=== PATIENT | female | born 1975 | race Caucasian/White ===

== ENCOUNTER → 2018-06-10 | Outpatient (CLI) | payer MEDICARE ==
--- NOTE | 2018-06-10 18:19 | REP ---
Clinical: Right ankle pain . Technique: AP, lateral, bilateral oblique views right ankle . Findings: Moderate swelling is suggested. No acute fracture or dislocation. Skeletal structures and joint spaces are intact and normal. Ankle mortise appears stable. No subcutaneous emphysema or radiodense foreign body. Impression: Moderate swelling. No acute fracture or dislocation. Electronically Signed by Martínez Gunderson MD 06/10/2018 06:10 P
--- NOTE | 2018-06-10 18:52 | REP ---
Right foot series: Four views: History: Pain in the right ankle and foot. Findings: Overall mineralization pattern is normal. There is a small bone island in the distal phalanx of the great toe. There is Achilles and plantar calcaneal spurring. Mild spurring is seen at the MTP joint of the great toe. No fracture or other acute bony abnormality is seen. Soft tissue swelling is seen dorsally over the forefoot on the lateral radiograph. Impression: Heel spurs. Mild first MTP joint spurring. Diffuse dorsal forefoot soft tissue swelling. Electronically Signed by Paolo Clemente MD 06/10/2018 06:58 P
== END ==
LOC: M WUC 17:56
PROVIDERS: ATTEND Physician Assistant
DX: M25.571 Pain in right ankle and joints of right foot (principal)

== ENCOUNTER 2018-12-27 18:52 | Inpatient (IN) | payer MEDICARE, MEDICAID ==
[~2018-12-27] VITALS: Ht 157.5 cm; Wt 58.2 kg
[2018-12-27 19:53] LABS: HEMATOCRIT 38.2 % (36.0-47.0); HEMOGLOBIN 12.7 g/dl (12.0-15.5); MEAN CORPUSCULAR HEMOGLOBIN 32.7 pg (27.0-33.0); MEAN CORPUSCULAR HGB CONC 33.2 g/dl (32.0-36.5); MEAN CORPUSCULAR VOLUME 98.5 fl (80.0-96.0); PLATELET COUNT, AUTOMATED 279 10^3/uL (150-450); RED BLOOD COUNT 3.88 10^6/uL (4.00-5.40); WHITE BLOOD COUNT 8.8 10^3/uL (4.0-10.0)
[2018-12-27 20:12] LABS: AMPHETAMINES LEVEL URINE NEGATIVE (NEGATIVE); BARBITURATES URINE NEGATIVE (NEGATIVE); BENZODIAZEPINES URINE NEGATIVE (NEGATIVE); CANNABINOIDS URINE NEGATIVE (NEGATIVE); COCAINE METABOLITE URINE NEGATIVE (NEGATIVE); METHADONE URINE NEGATIVE (NEGATIVE); OPIATES URINE NEGATIVE (NEGATIVE); PHENCYCLIDINE URINE NEGATIVE (NEGATIVE)
[2018-12-27 20:21] LABS: HCG, SERUM QUALITATIVE NEGATIVE (NEGATIVE)
[2018-12-27 20:23] LABS: ACETAMINOPHEN LEVEL < 2.0 UG/ML (10.0-30.0); ALBUMIN 4.2 GM/DL (3.2-5.2); ALT/SGPT 17 U/L (12-78); BILIRUBIN,DIRECT 0.2 MG/DL (0.0-0.2); BILIRUBIN,TOTAL 0.4 MG/DL (0.2-1.0); BLOOD UREA NITROGEN 16 MG/DL (7-18); CALCIUM LEVEL 9.1 MG/DL (8.5-10.1); CARBON DIOXIDE LEVEL 27 MEQ/L (21-32); CHLORIDE LEVEL 109 MEQ/L (98-107); CREATININE FOR GFR 0.69 MG/DL (0.55-1.30); ETHYL ALCOHOL (ETHANOL) < 0.003 % (0.000-0.010); GLOMERULAR FILTRATION RATE > 60.0 (>58); GLUCOSE, FASTING 115 MG/DL (70-100); POTASSIUM SERUM 3.5 MEQ/L (3.5-5.1); SALICYLATE LEVEL 3.9 MG/DL (5.0-30.0); SODIUM LEVEL 142 MEQ/L (136-145); THYROID STIMULATING HORMONE 0.411 uIU/ML (0.358-3.740); TOTAL PROTEIN 7.2 GM/DL (6.4-8.2)
--- NOTE | 2018-12-27 21:11 | REPVR ---
EXAM: CT Head Without Contrast EXAM DATE/TIME: 12/27/2018 8:29 PM CLINICAL HISTORY: 43 years old, female; Altered mental status/memory loss; Confusion or disorientation TECHNIQUE: Imaging protocol: Computed tomography images of the head without contrast. Radiation optimization: All CT scans at this facility use at least one of these dose optimization techniques: automated exposure control; mA and/or kV adjustment per patient size (includes targeted exams where dose is matched to clinical indication); or iterative reconstruction. COMPARISON: MRI-Brain without Contrast 03/19/2013 3:56 PM FINDINGS: Brain: Normal. No hemorrhage. Unremarkable white matter. No mass effect. Ventricles: Normal. No ventriculomegaly. Bones/joints: Unremarkable. No acute fracture. Sinuses: Visualized sinuses are unremarkable. No fluid levels. Mastoid air cells: Visualized mastoid air cells are well aerated. No mastoid effusion. Auditory system: Debris in the external auditory canals. Soft tissues: Unremarkable. IMPRESSION: Negative noncontrast head CT. Electronically signed by: Rogelio Pedraza On 12/27/2018 21:11:17 PM
[2018-12-27] MEDS ORDERED: MAALOX 30 ML SUSP *UDC PO PRN (22:00)
[2018-12-27] MEDS ORDERED: OLANZapine ORAL DISINTEGRATING TAB 5MG PO PRN (22:00)
[2018-12-27] MEDS ORDERED: NICOTINE 21MG/24HR 1 EA TRANSDERMAL TD PRN (22:00)
[2018-12-27] MEDS ORDERED: MOM 30ML SUSPENSION UDC PO PRN (22:00)
[2018-12-28] MEDS: PALIPERIDONE 3 MG ER TAB (INVEGA) PO SCH ×3 (00:02→21:02)
[2018-12-28] MEDS: traZODone 50 MG TAB PO PRN ×2 (00:04→21:02)
[2018-12-28] MEDS: ACETAMINOPHEN TAB 650MG DOSE (2X325MG) PO PRN ×3 (00:10→21:02)
[2018-12-28 00:17] VITALS: BP 141/87
[2018-12-28 06:43] VITALS: BP 131/75
--- NOTE | 2018-12-28 13:24 | MHHPEPDOC ---
General Date Of Admission: Dec 28, 2018 Legal Status: 9.39 Chief Complaint "when am I going to get out of here? , I just came because I was stressed out" History of Present Illness HISTORY OF THE PRESENT ILLNESS: Patient is a 43 -year-old , female, who according to ED report: Pt presented to ED with sisters. Pt states she is compliant with medication. Pt was brought in looking for help because she is "talking crazy" saying things like "They're going to come for me" "They're watching me." Pt reports that this has been going on for 2-3 months but she doesn't know how long each episode lasts. Pt reports no new stressors in her life. Pt is on disability for back injury that happened at work many years ago. Pt states she can recall what happens during these episodes and what she says. Pt states she hasn't slept in over 48 hours. Pt reports that she only eats every "3-4 days" but this is not a new behavior. Pt stated that she has no history of mental health and denies SI/HI. Pt lives at home with supportive mother and son. Pt stated no AH/VH "except today" but when asked if she could recall Pt changed subject. Pt is alert and oriented times 4. Pt's sisters have safety concerns. Pt reports that she "doesn't understand why this is happening to her" and how it "could happen at her age". Mental Health Evaluation completed by Truck Greaser Gerald Ayers. Reviewed by SAW Gilliam Psychiatric Review of Systems Depression (2 or more weeks): insomnia/hypersomnia (sometimes she wakes up several times during the night), feelings of excess/guilt, feelings of worthlesness, decreased energy, difficulty concentrating Jaylyn (4 or more days of): expansive mood (just a few times,), grandiosity (just at times, never for several days, she says), engages in risky behavior Psychosis: denies PTSD: denies Anxiety: gen/non-specific anxiety Anxiety/ 6 months or more of: restlessness, keyed up, muscle tension, sleep disturbance Past Psychiatric History Previous Psychiatric Diagnosis: Anxiety Previous Psychiatric Admissions: Denies Suicide Attempts: Denies Psychiatric Follow-up: Denies Psychiatric medications: she's been on Xanax before Past Medical History Medical Problems neck pain and spasms, lower back pain, "both knees are bad", degenerative disease, spinal stenosis, herniated disks, arthritis. Head Injury: No Seizures: No Hospitalizations: Yes (back surgery, laft knee operated on 7 x, right knee surgery once, hysterctomy, appendectomy) Surgeries: Yes Family Medical/Psychiatric HX Medical Problems Dad had diabetes, HTN, he 4 years ago. Mother is "prtty healthy for being 82 but she is very healthy" Psychiatric Disorders: No ("i'm not sure about that") Addiction: No Suicide Attemps/Completions: Yes (Not her biological family but her brother in law acommited suicide a long time ago) Addiction History nicotine (1 pack/day) Social History Childhood: "My childhood was good". Lived with parents and siblings Abuse/Trauma: Denies Current Living Situation: she lives with her mother, one of her sister's baby, her sister and her brother Education: finished HS Employment: She's on disability Social Support: her family Legal: Denies Marital: Denies, she has no children Mental Status Examination General Appearance: well groomed, appears stated age, hospital scubs/clothing Build: thin Demeanor: guarded Eye Contact: average Activity: anxious Behavior: cooperative, resistant Speech: clear, spontaneous, reg/rate,rhythm,volume Mood: depressed, anxious, irritable Affect: constricted, appropriate, congruent, anxious Thought Process: depressed, other (she seems not to understand what she is being asked at times. It looks as if she has thought blocking) Thought Content (Delusions): denies SI, HI, AVH, other (she seems paranoid) Thought Content (Other): preoccupied, guarded, appears paranoid Thought Content (Aggressive): none reported Perception (Hallucinations): none reported Perception (Other): none reported Cognition (Impairment of): attention/concentration Cognition(Intelligence Est.): average Oriented: Awake, Alert, Oriented times three (oriented to place and person, partially to date and time) Insight: poor Judgment: Fair Psychosis: Denies Diagnoses 1. Unspecified psychotic disorder 2. R/O MDD with psychosis A-FIB/CHADSVASC A-FIB History Current/History of A-Fib/PAF?: No Current PO Anticoag Therapy: No Age/Risk Factor Scoring CHADSVASC: CHADSVASC Response (Comments) Value Age Risk Factor Age < 65 years old 0 Gender Risk Factor Female 1 Hx of CHF No 0 Hx of HTN No 0 Hx of Stroke/TIA/or VTE No 0 Hx of Diabetes No 0 Hx of Vascular Disease No 0 Total 1 Treatment Treatment ordered: NONE Reason Anticoagulant not given: Not indicated/[id number] Assessment The patient is guarded and at times she gets upset while answering questions, mostly because she can't give an answer about the history of mental illnesses in her family or family h/o substance abuse and she said yes, there were substance abuse problems in her family, when I asked which persons were affected and what substances did they use, she said" well, I don't know exactly and I don't know who does or who doesn't. Doesn't every family have problems with that?." I made it clear that her answers had to be based on facts, not assumptions. She said she came to the ED and she was the one who asked to be brought here but she says : "Now I realize it was just stress". The patient seems to have thought blo cking, at times she seems distant, as if she has trouble processing the questions, she seems to be confabulating and minimizing her symptoms. She seems depressed, even when she denies feeling sad or depressed. However, she admits that her father's was very difficult for her and recnetly, she had to deal with "my little sister's situation, it doesn't help". then she says something about her sister yovani in trouble but she's not specific a bout this either. the patient seems to be depressed but most of all, psychotic. she was started on Invega last night, 3 mgs Po BID. I will approach her again to ask if she wants to start an SSRI, just waiting for her to be lless mistrustful Initial Treatment Plan 1. Patient was admitted on a [9.39] status. 2. Complete history was obtained. 3. With patients permission, family will be contacted and database will be expanded. 4. Patients medication regimen will be reviewed and changed accordingly. 5. Patient will be provided with protected environment. 6. Patient will be treated with individual, group, and milieu therapies. 7. Patient will receive supportive psych-education. 8. Discharge planning will commence immediately. 9. Outpatient follow-up treatment will be strongly recommended. 10. The initial treatment plan will focus initially on: * Depression. * Psychosis * Risk for suicide. * Substance abuse. ESTIMATED LENGTH OF STAY: 5-7 DAYS. TIME SPENT COUNSELING AND COORDINATING INITIAL CARE: 60 minutes. Vital Signs Vital Signs Date Time Temp Pulse Resp B/P (MAP) Pulse Ox O2 Delivery O2 Flow Rate FiO2 12/28/18 06:43 98.5 72 12 131/75 (93) 12/28/18 00:17 96 12/27/18 23:05 Room Air Laboratory Data 24H Labs Laboratory Tests 2 12/27/18 19:22: Urine Color YELLOW, Urine Appearance TURBIDH, Urine pH 5.0, Urine Specific Burg[place] 1.029, Urine Protein 1+H, Urine Glucose (UA) NEGATIVE, Urine Ketones TRACEH, Urine Blood 1+H, Urine Nitrite NEGATIVE, Urine Bilirubin NEGATIVE, Urine Urobilinogen 0.2, Urine Leukocyte Esterase NEGATIVE, Urine WBC (Auto) 0, Urine RBC (Auto) 0, Urine Hyaline Casts (Auto) 0, Urine Bacteria (Auto) NEGATIVE, Urine Squamous Epithelial Cells 0, Urine Sperm (Auto) 12/27/18 19:23: Nucleated Red Blood Cells % (auto) 0.0, Anion Gap 6L, Glomerular Filtration Rate > 60.0, Calcium Level 9.1, Aspartate Amino Transf (AST/SGOT) 6L, Alanine Aminotransferase (ALT/SGPT) 17, Alkaline Phosphatase 62, Total Bilirubin 0.4, Direct Bilirubin 0.2, Total Protein 7.2, Albumin 4.2, Albumin/Globulin Ratio 1.40, Thyroid Stimulating Hormone (TSH) 0.411, Human Chorionic Gonadotropin, Qual NEGATIVE, Salicylates Level 3.9L, Urine Amphetamines Screen NEGATIVE, Urine Benzodiazepines Screen NEGATIVE, Urine Opiates Screen NEGATIVE, Urine Methadone Screen NEGATIVE, Acetaminophen Level < 2.0L, Urine Barbiturates Screen NEGATIVE, Urine Phencyclidine Screen NEGATIVE, Urine Cocaine Metabolite Screen NEGATIVE, Urine Cannabinoids Screen NEGATIVE, Ethyl Alcohol Level < 0.003 CBC/BMP Laboratory Tests 12/27/18 19:23 Red Blood Count 3.88 L, Mean Corpuscular Volume 98.5 H, Mean Corpuscular Hemoglobin 32.7, Mean Corpuscular Hemoglobin Concent 33.2, Red Cell Distribution Width 13.4 Medications No Active Prescriptions or Reported Meds Allergies Coded Allergies: Penicillins (Verified Allergy, Severe, "airway closes", 12/27/18) BRIAN MCALLISTER MD Dec 28, 2018 13:23
[2018-12-28 18:00] VITALS: BP 114/81
--- NOTE | 2018-12-28 19:02 | HPE ---
DATE OF ADMISSION: 12/27/2018 HISTORY OF THE PRESENT ILLNESS: Please refer to psychiatric history and evaluation for further details on this admission. This examination and history is intended for medical issues which may need treatment, followup, or consult on this 43-year-old female. ALLERGIES: PENICILLIN. PRIMARY CARE PROVIDER: Dr. Keely Solo SOCIAL HISTORY: She is single. She lives with her mother and son. Ethyl alcohol (EtOH): Very rarely. Smokes: 1-2 packs of cigarettes per day. Recreational drug use: None. PAST MEDICAL HISTORY: Chronic back pain. PAST SURGICAL HISTORY: Back surgery times one. Left knee surgery times seven. Right knee surgery times five. Hysterectomy. Appendectomy. HOME MEDICATIONS: None. FAMILY HISTORY: Mother alive and well. Father hypertension, of sepsis in 2013. LABORATORY STUDIES: WBC 8.8, hemoglobin 12.7, hematocrit 38.2, platelets 279. Sodium 142, potassium 3.5, chloride 109, CO2 27, BUN 16, creatinine 0.69, nonfasting glucose 115, calcium 9.1. Beta hCG negative. Urine for toxicology negative. CT of the head negative. REVIEW OF SYSTEMS: Ten-systems review was done. Other than chronic back and knee pain, walks with an arm crutch; otherwise was unremarkable. PHYSICAL EXAMINATION: A 43-year-old cooperative female in no acute distress. Height 62 inches, weight 58.6 kg, body mass index (BMI) 23.6, blood pressure 130/70, pulse 72, respirations 16, temperature 98. The patient is alert and oriented times three. Pupils equal and reactive to light. Extraocular movements intact. Cornea and sclerae clear. Conjunctivae is normal. No facial asymmetry. Pharynx: Tongue and gums pink and moist. Tongue is midline. Neck is supple without lymphadenopathy. No thyromegaly. No goiter. Carotids 2+ without bruit. Chest is clear to auscultation without wheeze or retractions. Heart is regular. Abdomen benign. Bowel sounds are positive. Genital/Rectal: Not done. Extremities show equal strength, full range of motion. No cyanosis, clubbing or edema. Peripheral pulses equal and palpable bilaterally. Skin is warm and dry. IMPRESSION AND PLAN: Psychiatric plan per psychiatry. Chronic back pain, ambulates with an arm crutch. No acute medical issues.
[2018-12-28] MEDS: IBUPROFEN 600 MG TAB PO PRN (23:20)
[2018-12-29 06:34] VITALS: BP 118/56
[2018-12-29] MEDS: PALIPERIDONE 3 MG ER TAB (INVEGA) PO SCH ×2 (08:23→21:33)
[2018-12-29] MEDS: IBUPROFEN 600 MG TAB PO PRN ×2 (08:24→21:33)
[2018-12-29] MEDS ORDERED: traZODone 100 MG TAB PO PRN (14:30)
--- NOTE | 2018-12-29 14:36 | MHIPNPDOC ---
[facility] Progress Note Progress Note DATE OF SERVICE: 12/29/18 HISTORY: Patient is a 43 -year-old , female, who according to ED report: Pt presented to ED with sisters. Pt states she is compliant with edication. Pt was brought in looking for help because she is "talking crazy" saying things like "They're going to come for me" "They're watching me." Pt reports that this has been going on for 2-3 months but she doesn't know how long each episode lasts. Pt reports no new stressors in her life. Pt is on disability for back injury that happened at work many years ago. Pt states she can recall what happens during these episodes and what she says. Pt states she hasn't slept in over 48 hours. Pt reports that she only eats every "3-4 days" but this is not a new behavior. Pt stated that she has no history of mental health and denies SI/HI. Pt lives at home with supportive mother and son. Pt stated no AH/VH "except today" but when asked if she could recall Pt changed subject. Pt is alert and oriented times 4. Pt's sisters have safety concerns. Pt reports that she "doesn't understand why this is happening to her" and how it "could happen at her age". Mental Health Evaluation completed by Pin Game Machine Inspector Gerald Ayers. Reviewed by SAW Gilliam VITAL SIGNS: See below. NEW TEST RESULTS: See below CURRENT MEDICATIONS: See below. Mental Status Examination General Appearance: well groomed, appears stated age, hospital scubs/clothing Build: thin Demeanor: guarded Eye Contact: average Activity: less anxious today Behavior: cooperative, less resistant Speech: clear, spontaneous, reg/rate,rhythm,volume Mood: depressed, anxious but not irritable today Affect: less constricted, appropriate, congruent, anxious Thought Process: depressed, but is less blocked than yesterday Thought Content (Delusions): denies SI, HI, AVH, she is less guarded, seems to be less paranoid today Thought Content (Other): preoccupied, guarded, appears less paranoid Thought Content (Aggressive): none reported Perception (Hallucinations): none reported Perception (Other): none reported Cognition (Impairment of): attention/concentration Cognition(Intelligence Est.): average Oriented: Awake, Alert, Oriented times three (oriented to place and person, partially to date and time) Insight: poor Judgment: Fair Psychosis: Denies Diagnoses 1. Unspecified psychotic disorder 2. R/O MDD with psychosis ASSESSMENT: the patient had trouble sleeping, Trazodone has been increased to 100 mgs PO QHSP for insomnia and she has been started on Zoloft 50 mgs Po daily. she was educated about the risks and benefits of taking zoloft and she agreed to plan. Asked to report any physical or emotional changes that are out of the ordinary to Stafa. patient is less guarded today, yesterday it seemed as if she couldn't easily respond some f my questions, as if she was making up some of the answers but today she is more relaxed, her thoght process is improving but she is depressed. MANAGEMENT PLAN: As above TIME SPENT: 15 minutes. Vital Signs Vital Signs Date Time Temp Pulse Resp B/P (MAP) Pulse Ox O2 Delivery O2 Flow Rate FiO2 12/29/18 06:34 98.6 90 12 118/56 (76) 12/28/18 00:17 96 12/27/18 23:05 Room Air Current Medications Current Medications Medications (Trade) Dose Ordered Sig/Dory Route PRN Reason Start Time Stop Time Status Last Admin Dose Admin Acetaminophen (Tylenol Tab) 650 mg Q6HP PRN PO HEADACHE or DISCOMFORT 12/27/18 22:00 12/28/18 21:02 Al Hydrox/Mg Hydrox/Simethicone (Mylanta) 30 ml Q4HP PRN PO HEARTBURN/INDIGESTION 12/27/18 22:00 Home Med (Med Rec Complete!) ASDIRECTED XX 12/27/18 22:45 12/27/18 22:45 DC Ibuprofen (Advil) 600 mg Q6HP PRN PO MODERATE PAIN (PS 5-7) 12/28/18 22:45 12/29/18 08:24 Magnesium Hydroxide (Milk Of Magnesia) 30 ml DAILYPRN PRN PO CONSTIPATION 12/27/18 22:00 Nicotine (Nicoderm Cq 21mg) 1 patch DAILYPRN PRN TD CRAVING 12/27/18 22:00 Olanzapine (ZyPREXA ZYDIS) 5 mg Q6HP PRN PO ANXIETY/AGITATION 12/27/18 22:00 12/28/18 00:05 Paliperidone (Invega) 3 mg BID PO 12/27/18 22:00 12/29/18 08:23 Trazodone HCl (Desyrel) 50 mg QHSP PRN PO INSOMNIA 12/27/18 22:00 12/28/18 21:02 Allergies Coded Allergies: Penicillins (Verified Allergy, Severe, "airway closes", 12/27/18) BRIAN MCALLISTER MD Dec 29, 2018 12:01
[2018-12-29 18:00] VITALS: BP 110/81
[2018-12-30 06:46] VITALS: BP 103/67
[2018-12-30] MEDS: PALIPERIDONE 3 MG ER TAB (INVEGA) PO SCH ×2 (08:09→21:09)
[2018-12-30] MEDS: SERTRALINE HCL 50 MG TAB PO SCH (08:09)
--- NOTE | 2018-12-30 10:09 | MHIPNPDOC ---
[facility] Progress Note Progress Note DATE OF SERVICE: 12/30/18 HISTORY: Per Dr. Rothman: "Patient is a 43 -year-old , female, who according to ED report: Pt presented to ED with sisters. Pt states she is compliant with medication. Pt was brought in looking for help because she is "talking crazy" saying things like "They're going to come for me" "They're watching me." Pt reports that this has been going on for 2-3 months but she doesn't know how long each episode lasts. Pt reports no new stressors in her life. Pt is on disability for back injury that happened at work many years ago. Pt states she can recall what happens during these episodes and what she says. Pt states she hasn't slept in over 48 hours. Pt reports that she only eats every "3-4 days" but this is not a new behavior. Pt stated that she has no history of mental health and denies SI/HI. Pt lives at home with supportive mother and son. Pt stated no AH/VH "except today" but when asked if she could recall Pt changed subject. Pt is alert and oriented times 4. Pt's sisters have safety concerns. Pt reports that she "doesn't understand why this is happening to her" and how it "could happen at her age". Mental Health Evaluation completed by Devops Engineer Gerald Ayers. Reviewed by SAW Gilliam." VITAL SIGNS: See below. NEW TEST RESULTS: See below CURRENT MEDICATIONS: See below. Mental Status Examination General Appearance: well groomed, appears stated age, own clothing Build: thin Demeanor: guarded Eye Contact: average Activity: less anxious today Behavior: cooperative Speech: clear, spontaneous, reg/rate,rhythm,volume Mood: less depressed, less anxious Affect: less constricted, appropriate, congruent, less anxious Thought Process: less depressed, linear/logical Thought Content (Delusions): denies SI, HI, AVH, less guarded, seems to be less paranoid today Thought Content (Other): no longer preoccupied, less guarded, appears less paranoid Thought Content (Aggressive): none reported Perception (Hallucinations): none reported Perception (Other): none reported Cognition (Impairment of): good Cognition(Intelligence Est.): average Oriented: Awake, Alert, Oriented times three Insight: poor Judgment: Fair Psychosis: Denies Diagnoses 1. Unspecified psychotic disorder 2. R/O MDD with psychosis 3. R/O GARCÍA vs PTSD ASSESSMENT: Pt seen and states she's still not sleeping at night and has at times worrisome thoughts at night, possible paranoia (may have history of trauma but not willing to discuss or endorse with hypervigilance at night) and is not finding trazodone beneficial. Spoke with pt about trying seroquel for sleep at night to lessen the worrisome thoughts/paranoia/hypervigilance. Discussed risks and benefits and pt agreeable to trying. Does call herself a "worrier" when asked and therefore it is possible she's suffering for GARCÍA. She remains guarded although less and will answer questions logically and linearly. She is eating some but states she's never had the big of appetite. She is eating daily small portions here. She denies SI/HI, hallucinations, delusions. Feels safe here. MANAGEMENT PLAN: continue plan. Start seroquel 50mg qhs and vistaril 50mg q6hr prn anxiety zoloft 50mg daily invega 3mg bid trazodone 100mg qhs prn insomnia vistaril 50mg q6hr prn anxiety TIME SPENT: 15 minutes. Vital Signs Vital Signs Date Time Temp Pulse Resp B/P (MAP) Pulse Ox O2 Delivery O2 Flow Rate FiO2 12/30/18 06:46 98.0 85 12 103/67 (79) 12/28/18 00:17 96 12/27/18 23:05 Room Air Current Medications Current Medications Medications (Trade) Dose Ordered Sig/Dory Route PRN Reason Start Time Stop Time Status Last Admin Dose Admin Acetaminophen (Tylenol Tab) 650 mg Q6HP PRN PO HEADACHE or DISCOMFORT 12/27/18 22:00 12/28/18 21:02 Al Hydrox/Mg Hydrox/Simethicone (Mylanta) 30 ml Q4HP PRN PO HEARTBURN/INDIGESTION 12/27/18 22:00 Home Med (Med Rec Complete!) ASDIRECTED XX 12/27/18 22:45 12/27/18 22:45 DC Ibuprofen (Advil) 600 mg Q6HP PRN PO MODERATE PAIN (PS 5-7) 12/28/18 22:45 12/29/18 21:33 Magnesium Hydroxide (Milk Of Magnesia) 30 ml DAILYPRN PRN PO CONSTIPATION 12/27/18 22:00 Nicotine (Nicoderm Cq 21mg) 1 patch DAILYPRN PRN TD CRAVING 12/27/18 22:00 Olanzapine (ZyPREXA ZYDIS) 5 mg Q6HP PRN PO ANXIETY/AGITATION 12/27/18 22:00 12/28/18 00:05 Paliperidone (Invega) 3 mg BID PO 12/27/18 22:00 12/30/18 08:09 Sertraline HCl (Zoloft) 50 mg DAILY PO 12/30/18 09:00 12/30/18 08:09 Trazodone HCl (Desyrel) 50 mg QHSP PRN PO INSOMNIA 12/27/18 22:00 12/29/18 14:28 DC 12/28/18 21:02 Trazodone HCl (Desyrel) 100 mg QHSP PRN PO INSOMNIA 12/29/18 14:30 12/29/18 21:32 Allergies Coded Allergies: Penicillins (Verified Allergy, Severe, "airway closes", 12/27/18) CHESTER RITCHIE DO Dec 30, 2018 9:21 am
[2018-12-30] MEDS ORDERED: hydrOXYzine 50 MG TAB PO PRN (10:15)
[2018-12-30 18:17] VITALS: BP 108/66
[2018-12-30] MEDS: QUEtiapine FUMARATE 50 MG TAB PO SCH (21:09)
[2018-12-31 06:46] VITALS: BP 124/63
[2018-12-31] MEDS: SERTRALINE HCL 50 MG TAB PO SCH (08:09)
[2018-12-31] MEDS: PALIPERIDONE 3 MG ER TAB (INVEGA) PO SCH ×2 (08:09→21:30)
--- NOTE | 2018-12-31 11:11 | MHIPNPDOC ---
[facility] Progress Note Progress Note DATE OF SERVICE: 12/31/18 HISTORY: Per Dr. Rothman: "Patient is a 43 -year-old , female, who according to ED report: Pt presented to ED with sisters. Pt states she is compliant with medication. Pt was brought in looking for help because she is "talking crazy" saying things like "They're going to come for me" "They're watching me." Pt reports that this has been going on for 2-3 months but she doesn't know how long each episode lasts. Pt reports no new stressors in her life. Pt is on disability for back injury that happened at work many years ago. Pt states she can recall what happens during these episodes and what she says. Pt states she hasn't slept in over 48 hours. Pt reports that she only eats every "3-4 days" but this is not a new behavior. Pt stated that she has no history of mental health and denies SI/HI. Pt lives at home with supportive mother and son. Pt stated no AH/VH "except today" but when asked if she could recall Pt changed subject. Pt is alert and oriented times 4. Pt's sisters have safety concerns. Pt reports that she "doesn't understand why this is happening to her" and how it "could happen at her age". Mental Health Evaluation completed by Special Services Coordinator Gerald Ayers. Reviewed by SAW Gilliam." VITAL SIGNS: See below. NEW TEST RESULTS: See below CURRENT MEDICATIONS: See below. Mental Status Examination General Appearance: well groomed, appears stated age, own clothing Build: thin Demeanor: guarded Eye Contact: average Activity: less anxious today Behavior: cooperative Speech: clear, spontaneous, reg/rate,rhythm,volume Mood: less depressed, less anxious Affect: less constricted, appropriate, congruent, less anxious Thought Process: less depressed, linear/logical Thought Content (Delusions): denies SI, HI, AVH, less guarded, seems to be less paranoid today Thought Content (Other): no longer preoccupied, less guarded, appears less paranoid Thought Content (Aggressive): none reported Perception (Hallucinations): none reported Perception (Other): none reported Cognition (Impairment of): good Cognition(Intelligence Est.): average Oriented: Awake, Alert, Oriented times three Insight: poor Judgment: Fair Psychosis: Denies Diagnoses 1. Unspecified psychotic disorder 2. R/O MDD with psychosis 3. R/O GARCÍA vs PTSD ASSESSMENT: Pt seen and states she's sleeping much better with the start of Seroquel last night and states she's tolerating it well. States she's tolerating her newly started zoloft and invega but uncertain of how much benefit she's getting from them although feels overall better and less anxious. She appears less anxious and more rested as well. Worrisome thoughts/paranoia/hypervigilance appeared improved. States she's eating better but would prefer food from home. States sister's came to visit her yesterday and they told told her she was doing much better which she found nice and motivating. She less guarded and will answer questions logically and linearly. She denies SI/HI, hallucinations, delusions. Feels safe here. MANAGEMENT PLAN: continue plan. Start seroquel 50mg qhs and vistaril 50mg q6hr prn anxiety zoloft 50mg daily invega 3mg bid trazodone 100mg qhs prn insomnia vistaril 50mg q6hr prn anxiety TIME SPENT: 15 minutes. Vital Signs Vital Signs Date Time Temp Pulse Resp B/P (MAP) Pulse Ox O2 Delivery O2 Flow Rate FiO2 12/31/18 06:46 99.1 90 12 124/63 (83) 12/28/18 00:17 96 12/27/18 23:05 Room Air Current Medications Current Medications Medications (Trade) Dose Ordered Sig/Dory Route PRN Reason Start Time Stop Time Status Last Admin Dose Admin Acetaminophen (Tylenol Tab) 650 mg Q6HP PRN PO HEADACHE or DISCOMFORT 12/27/18 22:00 12/28/18 21:02 Al Hydrox/Mg Hydrox/Simethicone (Mylanta) 30 ml Q4HP PRN PO HEARTBURN/INDIGESTION 12/27/18 22:00 Home Med (Med Rec Complete!) ASDIRECTED XX 12/27/18 22:45 12/27/18 22:45 DC Hydroxyzine HCl (Atarax) 50 mg Q6HP PRN PO ANXIETY/AGITATION 12/30/18 10:15 Ibuprofen (Advil) 600 mg Q6HP PRN PO MODERATE PAIN (PS 5-7) 12/28/18 22:45 12/29/18 21:33 Magnesium Hydroxide (Milk Of Magnesia) 30 ml DAILYPRN PRN PO CONSTIPATION 12/27/18 22:00 Nicotine (Nicoderm Cq 21mg) 1 patch DAILYPRN PRN TD CRAVING 12/27/18 22:00 Olanzapine (ZyPREXA ZYDIS) 5 mg Q6HP PRN PO ANXIETY/AGITATION 12/27/18 22:00 12/28/18 00:05 Paliperidone (Invega) 3 mg BID PO 12/27/18 22:00 12/31/18 08:09 Quetiapine Fumarate (SEROquel) 50 mg QHS PO 12/30/18 21:00 12/30/18 21:09 Sertraline HCl (Zoloft) 50 mg DAILY PO 12/30/18 09:00 12/31/18 08:09 Trazodone HCl (Desyrel) 50 mg QHSP PRN PO INSOMNIA 12/27/18 22:00 12/29/18 14:28 DC 12/28/18 21:02 Trazodone HCl (Desyrel) 100 mg QHSP PRN PO INSOMNIA 12/29/18 14:30 12/29/18 21:32 Allergies Coded Allergies: Penicillins (Verified Allergy, Severe, "airway closes", 12/27/18) CHSETER RITCHIE DO Dec 31, 2018 11:11 am
[2018-12-31] MEDS: ACETAMINOPHEN TAB 650MG DOSE (2X325MG) PO PRN (16:12)
[2018-12-31 17:51] VITALS: BP 128/86
[2018-12-31 18:00] VITALS: BP 128/86
[2018-12-31] MEDS: QUEtiapine FUMARATE 50 MG TAB PO SCH (21:30)
[2018-12-31] MEDS: IBUPROFEN 600 MG TAB PO PRN (21:31)
[2019-01-01 06:51] VITALS: BP 109/68
[2019-01-01] MEDS: PALIPERIDONE 3 MG ER TAB (INVEGA) PO SCH ×2 (08:12→21:25)
[2019-01-01] MEDS: SERTRALINE HCL 50 MG TAB PO SCH (08:12)
--- NOTE | 2019-01-01 11:38 | MHIPNPDOC ---
[facility] Progress Note Progress Note DATE OF SERVICE: 01/01/19 HISTORY: Per Dr. Rothman: "Patient is a 43 -year-old , female, who according to ED report: Pt presented to ED with sisters. Pt states she is compliant with medication. Pt was brought in looking for help because she is "talking crazy" saying things like "They're going to come for me" "They're watching me." Pt reports that this has been going on for 2-3 months but she doesn't know how long each episode lasts. Pt reports no new stressors in her life. Pt is on disability for back injury that happened at work many years ago. Pt states she can recall what happens during these episodes and what she says. Pt states she hasn't slept in over 48 hours. Pt reports that she only eats every "3-4 days" but this is not a new behavior. Pt stated that she has no history of mental health and denies SI/HI. Pt lives at home with supportive mother and son. Pt stated no AH/VH "except today" but when asked if she could recall Pt changed subject. Pt is alert and oriented times 4. Pt's sisters have safety concerns. Pt reports that she "doesn't understand why this is happening to her" and how it "could happen at her age". Mental Health Evaluation completed by Vacuum Metalizing Supervisor Gerald Ayers. Reviewed by SAW Gilliam." VITAL SIGNS: See below. NEW TEST RESULTS: See below CURRENT MEDICATIONS: See below. Mental Status Examination General Appearance: well groomed, appears stated age, own clothing Build: thin Demeanor: cooperative Eye Contact: average Activity: calm Behavior: cooperative Speech: clear, spontaneous, reg/rate,rhythm,volume Mood: euthymic Affect: full, appropriate, congruent Thought Process: linear/logical Thought Content (Delusions): denies SI, HI, AVH, Thought Content (Other): no longer preoccupied guarded, or paranoid Thought Content (Aggressive): none reported Perception (Hallucinations): none reported Perception (Other): none reported Cognition (Impairment of): good Cognition(Intelligence Est.): average Oriented: Awake, Alert, Oriented times three Insight: fair Judgment: Fair Psychosis: Denies Diagnoses 1. Unspecified psychotic disorder 2. R/O MDD with psychosis 3. R/O GARCÍA vs PTSD ASSESSMENT: Pt seen and states she's doing well and feels she back to herself (per staff her sisters when visiting pt also report the same improvement), States she's sleeping much better with Seroquel, tolerating it well. States she's tolerating her newly started zoloft and invega feels they're beneficial as her mood/anxiety/paranoia are greatly improved with use of them. Pt sisters reported to staff when visiting pt on the unit last night that they believe pt may have taken too much of a medication that caused her to act so bizarre but couldn't state exactly what the med was. Asked pt about this and she stated that one of her sisters abuses substances/pills and her other sisters believe that pt was give a pill/sustance by her one sister which pt denies b/c she "would never take anything my sister gave me" b/c she abuses substances pills. States her sisters like to "gossip" a lot between each other which can at times create problems within them and pt states she prefers to not involve her self with their gossip as it makes her feel anxious. She appears calm and more rested today. Worrisome thoughts/paranoia/hypervigilance appeared to continue to improve. States she's eating better but would prefer food from home. States sister's continue to visit and tell her she's much better which the pt is glad to hear. She no longer guarded and will answer questions logically and linearly. She denies SI/HI, hallucinations, delusions. Feels safe here. MANAGEMENT PLAN: continue plan. zoloft 50mg daily invega 3mg bid trazodone 100mg qhs prn insomnia vistaril 50mg q6hr prn anxiety TIME SPENT: 30 minutes. Vital Signs Vital Signs Date Time Temp Pulse Resp B/P (MAP) Pulse Ox O2 Delivery O2 Flow Rate FiO2 01/01/19 06:51 98.9 95 18 109/68 (82) 12/28/18 00:17 96 12/27/18 23:05 Room Air Current Medications Current Medications Medications (Trade) Dose Ordered Sig/Dory Route PRN Reason Start Time Stop Time Status Last Admin Dose Admin Acetaminophen (Tylenol Tab) 650 mg Q6HP PRN PO HEADACHE or DISCOMFORT 12/27/18 22:00 12/31/18 16:12 Al Hydrox/Mg Hydrox/Simethicone (Mylanta) 30 ml Q4HP PRN PO HEARTBURN/INDIGESTION 12/27/18 22:00 Home Med (Med Rec Complete!) ASDIRECTED XX 12/27/18 22:45 12/27/18 22:45 DC Hydroxyzine HCl (Atarax) 50 mg Q6HP PRN PO ANXIETY/AGITATION 12/30/18 10:15 Ibuprofen (Advil) 600 mg Q6HP PRN PO MODERATE PAIN (PS 5-7) 12/28/18 22:45 12/31/18 21:31 Magnesium Hydroxide (Milk Of Magnesia) 30 ml DAILYPRN PRN PO CONSTIPATION 12/27/18 22:00 Nicotine (Nicoderm Cq 21mg) 1 patch DAILYPRN PRN TD CRAVING 12/27/18 22:00 Olanzapine (ZyPREXA ZYDIS) 5 mg Q6HP PRN PO ANXIETY/AGITATION 12/27/18 22:00 12/28/18 00:05 Paliperidone (Invega) 3 mg BID PO 12/27/18 22:00 01/01/19 08:12 Quetiapine Fumarate (SEROquel) 50 mg QHS PO 12/30/18 21:00 12/31/18 21:30 Sertraline HCl (Zoloft) 50 mg DAILY PO 12/30/18 09:00 01/01/19 08:12 Trazodone HCl (Desyrel) 50 mg QHSP PRN PO INSOMNIA 12/27/18 22:00 12/29/18 14:28 DC 12/28/18 21:02 Trazodone HCl (Desyrel) 100 mg QHSP PRN PO INSOMNIA 12/29/18 14:30 12/29/18 21:32 Allergies Coded Allergies: Penicillins (Verified Allergy, Severe, "airway closes", 12/27/18) CHESTER RITCHIE DO Jan 01, 2019 11:38 am
[2019-01-01 18:00] VITALS: BP 102/66
[2019-01-01] MEDS: QUEtiapine FUMARATE 50 MG TAB PO SCH (21:25)
[2019-01-01] MEDS: ACETAMINOPHEN TAB 650MG DOSE (2X325MG) PO PRN (21:27)
[2019-01-02 06:44] VITALS: BP 97/68
[2019-01-02] MEDS ORDERED: PALI1TAB2 PO (09:11)
[2019-01-02] MEDS ORDERED: SERT-155 PO (09:11)
[2019-01-02] MEDS ORDERED: HYDR50TA70 PO (09:11)
[2019-01-02] MEDS ORDERED: TRAZ10TA PO (09:11)
[2019-01-02] MEDS ORDERED: QUET5TAB PO (09:11)
--- NOTE | 2019-01-02 09:11 | MHDSPDOC ---
[facility] Discharge Summary Discharge Summary DATE OF ADMISSION: Dec 27, 2018 at 10:00 pm DATE OF DISCHARGE: Jan 02, 2019 DISCHARGE DIAGNOSES: 1. Unspecified psychotic disorder 2. R/O MDD with psychosis 3. R/O GARCÍA vs PTSD REASON FOR ADMISSION: Per Dr. Rothman: "Patient is a 43 -year-old , female, who according to ED report: Pt presented to ED with sisters. Pt states she is compliant with medication. Pt was brought in looking for help because she is "talking crazy" saying things like "They're going to come for me" "They're watching me." Pt reports that this has been going on for 2-3 months but she doesn't know how long each episode lasts. Pt reports no new stressors in her life. Pt is on disability for back injury that happened at work many years ago. Pt states she can recall what happens during these episodes and what she says. P t states she hasn't slept in over 48 hours. Pt reports that she only eats every "3-4 days" but this is not a new behavior. Pt stated that she has no history of mental health and denies SI/HI. Pt lives at home with supportive mother and son. Pt stated no AH/VH "except today" but when asked if she could recall Pt changed subject. Pt is alert and oriented times 4. Pt's sisters have safety concerns. Pt reports that she "doesn't understand why this is happening to her" and how it "could happen at her age". Mental Health Evaluation completed by Laminator Gerald Ayers. Reviewed by SAW Gilliam." CONSULTANTS INVOLVED: none TREATMENT AND PROGRESS ON THE UNIT : Pt was admitted to [facility], seen for psychiatric assessment and started on zoloft 50mg daily for mood and anxiety, invega 3mg bid for paranoia, and seroquel 50mg qhs for insomia. She was provided vistaril 50mg q6hr prn anxiety and trazodone 100mg qhs prn insomnia. Pt found her medications beneficial and tolerated them well. She attended groups daily during her stay. Her symptoms improved greatly with treatment and medications. On day of discharge she denied depression, anxiety, insomnia, SI/HI, hallucinations, delusions. She was discharged home with her sisters with follow-up at [facility].. She felt safe for discharge. DISCHARGE ASSESSMENT: Pt seen and states she feels "good" and is very much looking forward to going home with her sisters today. Per staff her sisters when visiting pt also report the same improvement. States she's sleeping well at night with Seroquel, tolerating it well. States she's tolerating her newly started zoloft and invega feels they're beneficial as her mood/anxiety/paranoia are greatly improved with use of them. She appears calm, euthymic, not psychotic, and more rested with treatment. Worrisome thoughts/paranoia/hypervigilance appeared greatly improved since admission to denial of current symptoms. States she's eating better but would prefer food from home. She no longer guarded and will answer questions logically and linearly. She denies depression, anxiety, insomnia, SI/HI, hallucinations, delusions. Feels safe to be discharged home. MENTAL STATUS EXAMINATION ON DISCHARGE: General Appearance: well groomed, appears stated age, own clothing Build: thin Demeanor: cooperative Eye Contact: average Activity: calm Behavior: cooperative Speech: clear, spontaneous, reg/rate,rhythm,volume Mood: euthymic Affect: full, appropriate, congruent Thought Process: linear/logical Thought Content (Delusions): denies SI, HI, AVH, Thought Content (Other): none reported Thought Content (Aggressive): none reported Perception (Hallucinations): none reported Perception (Other): none reported Cognition (Impairment of): good Cognition(Intelligence Est.): average Oriented: Awake, Alert, Oriented times three Insight: good Judgment: good Psychosis: Denies MEDICATIONS ON DISCHARGE: zoloft 50mg daily invega 3mg bid trazodone 100mg qhs prn insomnia vistaril 50mg q6hr prn anxiety PLAN/FOLLOWUP ARRANGEMENTS: D/c home with her sisters with follow-up at [facility]. The amount of time spent in the coordination of care for this patient was approximately 30 minutes. Vital Signs/I&Os Vital Signs Date Time Temp Pulse Resp B/P (MAP) Pulse Ox O2 Delivery O2 Flow Rate FiO2 01/02/19 06:44 99.8 107 12 97/68 (78) 12/28/18 00:17 96 12/27/18 23:05 Room Air Medications No Active Prescriptions or Reported Meds Allergies Coded Allergies: Penicillins (Verified Allergy, Severe, "airway closes", 12/27/18) CHESTER RITCHIE DO Jan 02, 2019 9:11 am
[2019-01-02] MEDS: PALIPERIDONE 3 MG ER TAB (INVEGA) PO SCH (09:49)
[2019-01-02] MEDS: SERTRALINE HCL 50 MG TAB PO SCH (09:49)
== END 2019-01-02 11:20 | disposition home or self-care (01) | DRG 885 ==
LOC: M ED 18:52 → M ED INP 22:00 → M PSY 23:20
PROVIDERS: ADMIT Psychiatry & Neurology Psychiatry; ATTEND Psychiatry & Neurology Psychiatry
DX: F32.2 Major depressive disorder, single episode, severe without psychotic features (principal); F32.9 Major depressive disorder, single episode, unspecified; F41.1 Generalized anxiety disorder; F43.10 Post-traumatic stress disorder, unspecified; Z88.0 Allergy status to penicillin; F17.210 Nicotine dependence, cigarettes, uncomplicated; M54.5 Low back pain

== ENCOUNTER 2020-06-04 19:01 | Inpatient (IN) | payer MEDICARE, MEDICAID ==
[~2020-06-04] VITALS: Ht 157.5 cm; Wt 68.2 kg
[~2020-06-04 19:01] MED LIST: HYDR50TA70 PO; PALI1TAB2 PO; QUET50TA3 PO; SERT50TA29 PO; TRAZ1TAB12 PO
--- OUTSIDE RECORDS SUMMARY | 2020-06-04 19:07 | CCD ---
Author Author [facility] Organization [facility] Address Unknown Phone Unavailable Care Team Providers Care Glassware Engraver Name Role Phone JACKELIN, Mamie Unavailable Unavailable Daniella Mclaughlin Unavailable Re-disclosure Warning The records that you are about to access may contain information from federally-assisted alcohol or drug abuse programs. If such information is present, then the following federally mandated warning applies: This information has been disclosed to you from records protected by federal confidentiality rules (42 CFR part 2). The federal rules prohibit you from making any further disclosure of this information unless further disclosure is expressly permitted by the written consent of the person to whom it pertains or as otherwise permitted by 42 CFR part 2. A general authorization for the release of medical or other information is NOT sufficient for this purpose. The Federal rules restrict any use of the information to criminally investigate or prosecute any alcohol or drug abuse patient.The records that you are about to access may contain highly sensitive health information, the redisclosure of which is protected by Article 27-F of the [facility] Public Health law. If you continue you may have access to information: Regarding HIV / AIDS; Provided by facilities licensed or operated by the [facility] Office of Mental Health; or Provided by the [facility] Office for People With Developmental Disabilities. If such information is present, then the following [facility] mandated warning applies: This information has been disclosed to you from confidential records which are protected by state law. State law prohibits you from making any further disclosure of this information without the specific written consent of the person to whom it pertains, or as otherwise permitted by law. Any unauthorized further disclosure in violation of state law may result in a fine or retirement sentence or both. A general authorization for the release of medical or other information is NOT sufficient authorization for further disc losure. Family History Family Member Name Family Member Gender Family Member Status Date o f Status Description Data Source(s) Unknown Male Problem [facility]ENT ([facility]) Unknown Unknown Problem [facility] ([facility]) Encounters Encounter Providers Location Date Indications Data Source(s ) Outpatient Referrer: [id number] NRI 10/15/2019 01:40:[address] [facility] Radiology Imaging Extended Individual Psychotherapy - 45 min Attender: Isi Mclaughlin [facility] 04/11/2019 04:30:00 AM EST - 04/11/2019 04:30:00 AM EST [facility] ([facility]) Attender: Daniella Mclaughlin 04/11/2019 12:00:0 0 AM EST [facility] ([facility]) Medications Medication Brand Name Start Date Product Form Dose Route Admi nistrative Instructions Pharmacy Instructions Status Indications Reaction Description Data Source(s) 7.5-325 mg 05/05/2020 12:00:00 AM EST tablet 60 TAKE ONE TABLET BY MOUTH TWICE A DAY MAXIMUM DAILY DOSE = 2 TAKE ONE TABLET BY MOUTH TWICE A DAY MAX IMUM DAILY DOSE = 2 SOLD: 05/05/2020 [facility] Cephalexin 500 MG Oral Capsule CEPHALEXIN 04/05/2020 12:00:00 AM EST capsule 40 TAKE ONE CAPSULE BY MOUTH FOUR TIMES A DAY TAKE ONE CA PSULE BY MOUTH FOUR TIMES A DAY SOLD: 04/05/2020 [facility] 7.5-325 mg 04/05/2020 12:00:00 AM EST tablet 60 TAKE ONE TABLET BY MOUTH TWICE A DAY MAXIMUM DAILY DOSE = 2 TAKE ONE TABLET BY MOUTH TWICE A DAY MAX IMUM DAILY DOSE = 2 SOLD: 04/05/2020 [facility] 20 mg 04/05/2020 12:00:00 AM EST tablet 90 TAKE ONE TABLET BY MOUTH THREE TIMES A DAY TAKE ONE TABLET BY MOUTH THREE TIMES A DAY SOLD: 04/05/2020 [facility] 250 mg 04/01/2020 12:00:00 AM EST tablet 6 TAKE TWO TABLETS BY MOUTH AT ONCE ON THE FIRST DAY THEN TAKE ONE DAILY THEREAFTER TAKE TWO TABLETS BY MOUTH AT ONCE ON THE FIRST DAY THEN TAKE ONE DAILY THEREAFTER SOLD: 04/01/2020 [facility] 20 mg 03/05/2020 12:00:00 AM EDT tablet 90 TAKE ONE TABLET BY MOUTH THREE TIMES A DAY TAKE ONE TABLET BY MOUTH THREE TIMES A DAY SOLD: 03/06/2020 [facility] 7.5-325 mg 03/05/2020 12:00:00 AM EDT tablet 60 TAKE ONE TABLET BY MOUTH TWICE A DAY MAXIMUM DAILY DOSE = 2 TABLETS TAKE ONE TABLET BY MOUTH TWICE A DAY MAXIMUM DAILY DOSE = 2 TABLETS SOLD: 03/05/2020 [facility] 7.5-325 mg 02/05/2020 12:00:00 AM EDT tablet 60 TAKE ONE TABLET BY MOUTH TWICE A DAY MAXIMUM DAILY DOSE = 2 TABLETS TAKE ONE TABLET BY MOUTH TWICE A DAY MAXIMUM DAILY DOSE = 2 TABLETS SOLD: 02/05/2020 [facility] 20 mg 01/05/2020 12:00:00 AM EDT tablet 90 TAKE ONE TABLET BY MOUTH THREE TIMES A DAY TAKE ONE TABLET BY MOUTH THREE TIMES A DAY SOLD: 01/05/2020 [facility] 7.5-325 mg 01/05/2020 12:00:00 AM EDT tablet 60 TAKE ONE TABLET BY MOUTH TWICE A DAY MAXIMUM DAILY DOSE = TWO TABLETS TAKE ONE TABLET BY MOUTH TWICE A DAY MAXIMUM DAILY DOSE = TWO TABLETS SOLD: 01/05/2020 [facility] 7.5-325 mg 12/04/2019 12:00:00 AM EDT tablet 60 TAKE ONE TABLET BY MOUTH TWICE A DAY MAXIMUM DAILY DOSE = 2 TAKE ONE TABLET BY MOUTH TWICE A DAY MAX IMUM DAILY DOSE = 2 SOLD: 12/04/2019 [facility] 7.5-325 mg 11/04/2019 12:00:00 AM EDT tablet 60 TAKE ONE TABLET BY MOUTH TWICE A DAY MAXIMUM DAILY DOSE = 2 TABLETS TAKE ONE TABLET BY MOUTH TWICE A DAY MAXIMUM DAILY DOSE = 2 TABLETS SOLD: 11/04/2019 [facility] 20 mg 11/04/2019 12:00:00 AM EDT tablet 90 TAKE ONE TABLET BY MOUTH THREE TIMES A DAY TAKE ONE TABLET BY MOUTH THREE TIMES A DAY SOLD: 11/04/2019 [facility] 20 mg 10/02/2019 12:00:00 AM EDT tablet 90 TAKE ONE TABLET BY MOUTH THREE TIMES A DAY TAKE ONE TABLET BY MOUTH THREE TIMES A DAY SOLD: 10/02/2019 [facility] 7.5-325 mg 10/02/2019 12:00:00 AM EDT tablet 60 TAKE ONE TABLET BY MOUTH TWICE A DAY MAXIMUM DAILY DOSE = 2 TAKE ONE TABLET BY MOUTH TWICE A DAY MAX IMUM DAILY DOSE = 2 SOLD: 10/02/2019 [facility] 20 mg 09/03/2019 12:00:00 AM EDT tablet 90 TAKE ONE TABLET BY MOUTH THREE TIMES A DAY TAKE ONE TABLET BY MOUTH THREE TIMES A DAY SOLD: 09/03/2019 [facility] 7.5-325 mg 09/03/2019 12:00:00 AM EDT tablet 60 TAKE ONE TABLET BY MOUTH TWICE A DAY MAXIMUM DAILY DOSE = 2 TABLETS TAKE ONE TABLET BY MOUTH TWICE A DAY MAXIMUM DAILY DOSE = 2 TABLETS SOLD: 09/03/2019 [facility] 20 mg 08/05/2019 12:00:00 AM EDT tablet 90 TAKE ONE TABLET BY MOUTH THREE TIMES A DAY TAKE ONE TABLET BY MOUTH THREE TIMES A DAY SOLD: 08/05/2019 [facility] 7.5-325 mg 08/05/2019 12:00:00 AM EDT tablet 60 TAKE ONE TABLET BY MOUTH TWICE A DAY MAXIMUM DAILY DOSE = 2 TAKE ONE TABLET BY MOUTH TWICE A DAY MAX IMUM DAILY DOSE = 2 SOLD: 08/05/2019 [facility] 20 mg 07/07/2019 12:00:00 AM EST tablet 90 TAKE ONE TABLET BY MOUTH THREE TIMES A DAY TAKE ONE TABLET BY MOUTH THREE TIMES A DAY SOLD: 07/07/2019 [facility] 7.5 mg 07/07/2019 12:00:00 AM EST tablet 60 TAKE ONE TABLET BY MOUTH TWICE A DAY TAKE ONE TABLET BY MOUTH TWICE A DAY SOLD: 07/07/2019 [facility] 7.5-325 mg 07/07/2019 12:00:00 AM EST tablet 30 TAKE ONE TABLET BY MOUTH EVERY MORNING MAXIMUM DAILY DOSE = 1 TAKE ONE TABLET BY MOUTH EVERY MORNING MAXIMUM DAILY DOSE = 1 SOLD: 07/07/2019 [facility] 7.5-325 mg 06/03/2019 12:00:00 AM EST tablet 90 TAKE ONE TABLET BY MOUTH THREE TIMES A DAY MAXIMUM DAILY DOSE = 3 TAKE ONE TABLET BY MOUTH THREE TIMES A DAY MAXIMUM DAILY DOSE = 3 SOLD: 06/03/2019 [facility] 20 mg 05/30/2019 12:00:00 AM EST tablet 90 TAKE ONE TABLET BY MOUTH THREE TIMES A DAY TAKE ONE TABLET BY MOUTH THREE TIMES A DAY SOLD: 06/03/2019 [facility] 7.5-325 mg 05/05/2019 12:00:00 AM EST tablet 90 TAKE 1 TABLET BY MOUTH THREE TIMES A DAY MAXIMUM DAILY DOSE = 3 TAKE 1 TABLET BY MOUTH THREE TIMES A DAY MAXIMUM DAILY DOSE = 3 SOLD: 05/05/2019 [facility] 20 mg 05/01/2019 12:00:00 AM EST tablet 90 TAKE 1 TABLET BY MOUTH THREE TIMES A DAY TAKE 1 TABLET BY MOUTH THREE TIMES A DAY SOLD: 05/05/2019 [facility] 7.5-325 mg 04/06/2019 12:00:00 AM EST tablet 120 TAKE ONE TABLET BY MOUTH FOUR TIMES A DAY, MAXIMUM DAILY DOSE = 4 TAKE ONE TABLET BY MOUTH FOUR TIMES A DAY, MAXIMUM DAILY DOSE = 4 SOLD: 04/06/2019 [facility] 100 mg 04/04/2019 12:00:00 AM EST capsule 30 TAKE ONE CAPSULE BY MOUTH TWICE A DAY TAKE ONE CAPSULE BY MOUTH TWICE A DAY SOLD: 04/06/2019 [facility] 20 mg 04/04/2019 12:00:00 AM EST tablet 90 TAKE ONE TABLET BY MOUTH THREE TIMES A DAY TAKE ONE TABLET BY MOUTH THREE TIMES A DAY SOLD: 04/06/2019 [facility] Insurance Providers Payer name Policy type / Coverage type Policy ID Covered alliance party ID Covered alliance party's relationship to guerrero Policy Guerrero Plan Information [id number] SP [id number] [facility] [id number] SP [id number] MEDICARE C [id number] S [id number] N66 [employer] PART B C [id number] S [id number] [employer] JE PART B C [id number] S [id number] MEDICAID [id number] SP [id number] MEDICARE [id number] SP [id number] MEDICARE [id number] SP [id number] MEDICARE [id number] SP [id number] A [facility] Part B [id number] Self [id number] [facility] Claims (WC) Workers Compensation [id number] Jackelin f [id number] [place] Claims ([place]) Workers Compensation [id number] Self [id number] Medicare Natl Gov't Servi Medicare Primary [id number] Self [id number] MEDICARE PART A -O/P [id number] 18 [id number] MEDICARE [id number] SP [id number] A SELF PAY UNAVAILABLE SP UNAVAILA BLE MEDFOCUS P [id number] S [id number] A Problems, Conditions, and Diagnoses Code Display Name Description Problem Type Effective Dates Data Source(s) F41.9 Anxiety disorder, unspecified Unspecified Anxiety Diso rder Condition 04/11/2019 12:00:00 AM EST [facility] ([facility]) F29 Unspecified psychosis not du e to a substance or known physiological condition Unspecified Schizophrenia Spectrum and Other Psychotic Disorder Condition 04/11/2019 12:00:00 AM EST [facility] ([facility]) Surgeries/Procedures Procedure Description Date Indications Data Source(s) Extended Individual Psychotherapy - 45 min 04/11/2019 12:00:00 AM EST - 04/11/2019 12:00:00 AM EST [facility] ([facility]) Extended Individual Psychotherapy - 45 min 9 12:00:00 AM EST [facility] ([facility]) Social History Code Duration Value Status Description Data Source(s ) Smoking 04/11/2019 12:00:00 AM EST Unknown if ever smoked comp leted Unknown if ever smoked [facility] ([facility])
--- OUTSIDE RECORDS SUMMARY | 2020-06-04 19:41 | CCD ---
Author Author [facility] Organization [facility] Address Unknown Phone Unavailable Care Team Providers Care Adolescent Psychiatrist Name Role Phone JACKELIN, Mamie Unavailable Unavailable [...] is protected by Article 27-F of the [facility] Public Health law. If you continue you may have access to information: Regarding HIV / AIDS; Provided by facilities licensed or operated by the [facility] Office of Mental Health; or Provided by the [facility] Office for People With Developmental Disabilities. If such information is present, then the following [facility] mandated warning applies: This information has [...] law may result in a fine or long term sentence or both. A general authorization for [...] Referrer: [id number] NRI 10/15/2019 01:40:00 PM EDT [facility] Radiology Imaging Extended Individual Psychotherapy - 45 min Attender: Isi Mclaughlin [facility] 04/11/2019 04:30:00 AM EST - 04/11/2019 04:30:00 AM EST [facility] ([facility]) Attender: Daniella Mclaughlin 04/11/2019 12:00:0 0 AM EST [facility] ([facility]) Medications Medication Brand Name Start Date Product [...] MOUTH THREE TIMES A DAY SOLD: 01/05/2020 [facility] 7.5-325 mg 01/05/2020 12:00:00 AM EDT [...] DAILY DOSE = 2 TABLETS SOLD: 09/03/2019 [facility] 20 mg 08/05/2019 12:00:00 AM EDT [...] type / Coverage type Policy ID Covered constitution party ID Covered constitution party's relationship to guerrero Policy Guerrero Plan Information EMEDMD [id number] SP [id number] [facility] [id number] SP [id number] MEDICARE C [id number] S [id number] N66 [employer] PART B C [id number] S [id number] [employer] JE PART B C [id number] S [id number] MEDICAID [id number] SP [id number] MEDICARE [id number] SP [id number] N66 MEDICARE [id number] SP [id number] MEDICARE [id number] SP [id number] A [facility] Part B [id number] Self [id number] [facility] Claims (WC) Workers Compensation [id number] Jackelin f [id number] [facility] Claims ([place]) Workers Compensation [id number] Self [id number] Medicare Natl Gov't Servi Medicare Primary [id number] Self [id number] MEDICARE PART A -O/P [id number] 18 [id number] MEDICARE [id number] SP [id number] A SELF PAY UNAVAILABLE SP UNAVAILA BLE MEDFOCUS P [id number] S [id number] A Problems, Conditions, and Diagnoses Code Display Name Description Problem Type Effective Dates Data Source(s) F41.9 Anxiety disorder, unspecified Unspecified Anxiety Diso rder Condition 04/11/2019 12:00:00 AM EST [facility] ([facility]) F29 Unspecified psychosis not du e to a substance or known physiological condition Unspecified Schizophrenia Spectrum and Other Psychotic Disorder Condition 04/11/2019 12:00:00 AM EST [facility] ([facility]) Surgeries/Procedures Procedure Description Date Indications Data Source(s) Extended Individual Psychotherapy - 45 min 04/11/2019 12:00:00 AM EST - 04/11/2019 12:00:00 AM EST [facility] ([facility]) Extended Individual Psychotherapy - 45 min 9 12:00:00 AM EST [facility] ([facility]) Social History Code Duration Value Status Description Data Source(s ) Smoking 04/11/2019 12:00:00 AM EST Unknown if ever smoked comp leted Unknown if ever smoked [facility] ([facility])
[2020-06-04 19:42] LABS: HEMATOCRIT 37.7 % (36.0-47.0); HEMOGLOBIN 12.2 g/dl (12.0-15.5); MEAN CORPUSCULAR HGB CONC 32.4 g/dl (32.0-36.5); MEAN CORPUSCULAR VOLUME 95.9 fl (80.0-96.0); PLATELET COUNT, AUTOMATED 342 10^3/uL (150-450); RED BLOOD COUNT 3.93 10^6/uL (4.00-5.40)
[2020-06-04] MEDS ORDERED: AZIT-12 PO (19:43)
[2020-06-04] MEDS ORDERED: BACL1TAB9 PO (19:43)
[2020-06-04] MEDS ORDERED: HYDR-4514 PO (19:43)
[2020-06-04] MEDS ORDERED: med rec comment (19:46)
[2020-06-04 20:16] LABS: ACETAMINOPHEN LEVEL < 2.0 UG/ML (10.0-30.0); ALBUMIN 4.3 GM/DL (3.2-5.2); ALT/SGPT 16 U/L (12-78); BILIRUBIN,DIRECT 0.1 MG/DL (0.0-0.2); BILIRUBIN,TOTAL 0.3 MG/DL (0.2-1.0); BLOOD UREA NITROGEN 14 MG/DL (7-18); CALCIUM LEVEL 9.4 MG/DL (8.5-10.1); CARBON DIOXIDE LEVEL 29 MEQ/L (21-32); CHLORIDE LEVEL 103 MEQ/L (98-107); CREATININE FOR GFR 0.69 MG/DL (0.55-1.30); ETHYL ALCOHOL (ETHANOL) < 0.003 % (0.000-0.010); GLOMERULAR FILTRATION RATE > 60.0 (>58); GLUCOSE, FASTING 113 MG/DL (70-100); POTASSIUM SERUM 3.4 MEQ/L (3.5-5.1); SALICYLATE LEVEL 3.8 MG/DL (5.0-30.0); SODIUM LEVEL 139 MEQ/L (136-145); THYROID STIMULATING HORMONE 0.813 uIU/ML (0.358-3.740); TOTAL PROTEIN 7.4 GM/DL (6.4-8.2)
[2020-06-04 20:21] LABS: HCG, SERUM QUALITATIVE NEGATIVE (NEGATIVE)
[2020-06-04 20:22] LABS: RSV AMPLIFICATION NEGATIVE (NEGATIVE)
[2020-06-04 20:32] LABS: AMPHETAMINES LEVEL URINE NEGATIVE (NEGATIVE); BARBITURATES URINE NEGATIVE (NEGATIVE); BENZODIAZEPINES URINE NEGATIVE (NEGATIVE); CANNABINOIDS URINE NEGATIVE (NEGATIVE); COCAINE METABOLITE URINE NEGATIVE (NEGATIVE); METHADONE URINE NEGATIVE (NEGATIVE); OPIATES URINE POSITIVE (NEGATIVE); PHENCYCLIDINE URINE NEGATIVE (NEGATIVE)
[2020-06-05] MEDS ORDERED: LORazepam 2 MG/ML VIAL IM STA (01:53)
[2020-06-05] MEDS ORDERED: MOM 30ML SUSPENSION UDC PO PRN (06:30)
[2020-06-05] MEDS ORDERED: MAALOX 30 ML SUSP *UDC PO PRN (06:30)
[2020-06-05] MEDS ORDERED: OLANZapine ORAL DISINTEGRATING TAB 5MG PO PRN (06:30)
--- OUTSIDE RECORDS SUMMARY | 2020-06-05 07:21 | CCD ---
Author Author [facility] Organization [facility] Address Unknown Phone Unavailable Care Team Providers Care Landfill Grader Name Role Phone JACKELIN, Mamie Unavailable Unavailable [...] is protected by Article 27-F of the [facility] Public Health law. If you continue you may have access to information: Regarding HIV / AIDS; Provided by facilities licensed or operated by the [facility] Office of Mental Health; or Provided by the [facility] Office for People With Developmental Disabilities. If such information is present, then the following [facility] mandated warning applies: This information has [...] law may result in a fine or mcfp sentence or both. A general authorization for [...] Referrer: [id number] NRI 10/15/2019 01:40:00 PM EDT [facility] Radiology Imaging Extended Individual Psychotherapy - 45 min Attender: Isi Mclaughlin [facility] 04/11/2019 04:30:00 AM EST - 04/11/2019 04:30:00 AM EST [facility] ([facility]) Attender: Daniella Mclaughlin 04/11/2019 12:00:0 0 AM EST [facility] ([facility]) Medications Medication Brand Name Start Date Product Form Dose Route Admi nistrative Instructions Pharmacy Instructions Status Indications Reaction Description Data Source(s) 7.5-325 mg 06/03/2020 12:00:00 AM EST tablet 60 TAKE ONE TABLET BY MOUTH TWICE A DAY MAXIMUM DAILY DOSE = 2 TAKE ONE TABLET BY MOUTH TWICE A DAY MAX IMUM DAILY DOSE = 2 SOLD: 06/04/2020 [facility] 20 mg 06/03/2020 12:00:00 AM EST tablet 90 TAKE ONE TABLET BY MOUTH THREE TIMES A DAY TAKE ONE TABLET BY MOUTH THREE TIMES A DAY SOLD: 06/04/2020 [facility] 250 mg 06/03/2020 12:00:00 AM EST tablet 6 TAKE DIRECTEDD TAKE DIRECTEDD SOLD: 06/04/2020 [facility] 7.5-325 mg 05/05/2020 12:00:00 AM EST tablet [...] THEN TAKE ONE DAILY THEREAFTER SOLD: 04/01/2020 [facility] 20 mg 03/05/2020 12:00:00 AM EDT tablet 90 TAKE ONE TABLET BY MOUTH THREE TIMES A DAY TAKE ONE TABLET BY MOUTH THREE TIMES A DAY SOLD: 03/06/2020 [facility] 7.5-325 mg 03/05/2020 12:00:00 AM EDT tablet 60 TAKE ONE TABLET BY MOUTH TWICE A DAY MAXIMUM DAILY DOSE = 2 TABLETS TAKE ONE TABLET BY MOUTH TWICE A DAY MAXIMUM DAILY DOSE = 2 TABLETS SOLD: 03/05/2020 [facility] 7.5-325 mg 02/05/2020 12:00:00 AM EDT tablet 60 TAKE ONE TABLET BY MOUTH TWICE A DAY MAXIMUM DAILY DOSE = 2 TABLETS TAKE ONE TABLET BY MOUTH TWICE A DAY MAXIMUM DAILY DOSE = 2 TABLETS SOLD: 02/05/2020 [facility] 20 mg 01/05/2020 12:00:00 AM EDT tablet 90 TAKE ONE TABLET BY MOUTH THREE TIMES A DAY TAKE ONE TABLET BY MOUTH THREE TIMES A DAY SOLD: 01/05/2020 [facility] 7.5-325 mg 01/05/2020 12:00:00 AM EDT tablet 60 TAKE ONE TABLET BY MOUTH TWICE A DAY MAXIMUM DAILY DOSE = TWO TABLETS TAKE ONE TABLET BY MOUTH TWICE A DAY MAXIMUM DAILY DOSE = TWO TABLETS SOLD: 01/05/2020 [facility] 7.5-325 mg 12/04/2019 12:00:00 AM EDT tablet 60 TAKE ONE TABLET BY MOUTH TWICE A DAY MAXIMUM DAILY DOSE = 2 TAKE ONE TABLET BY MOUTH TWICE A DAY MAX IMUM DAILY DOSE = 2 SOLD: 12/04/2019 [facility] 7.5-325 mg 11/04/2019 12:00:00 AM EDT tablet 60 TAKE ONE TABLET BY MOUTH TWICE A DAY MAXIMUM DAILY DOSE = 2 TABLETS TAKE ONE TABLET BY MOUTH TWICE A DAY MAXIMUM DAILY DOSE = 2 TABLETS SOLD: 11/04/2019 [facility] 20 mg 11/04/2019 12:00:00 AM EDT tablet 90 TAKE ONE TABLET BY MOUTH THREE TIMES A DAY TAKE ONE TABLET BY MOUTH THREE TIMES A DAY SOLD: 11/04/2019 [facility] 20 mg 10/02/2019 12:00:00 AM EDT tablet 90 TAKE ONE TABLET BY MOUTH THREE TIMES A DAY TAKE ONE TABLET BY MOUTH THREE TIMES A DAY SOLD: 10/02/2019 [facility] 7.5-325 mg 10/02/2019 12:00:00 AM EDT tablet 60 TAKE ONE TABLET BY MOUTH TWICE A DAY MAXIMUM DAILY DOSE = 2 TAKE ONE TABLET BY MOUTH TWICE A DAY MAX IMUM DAILY DOSE = 2 SOLD: 10/02/2019 [facility] 20 mg 09/03/2019 12:00:00 AM EDT tablet [...] BY MOUTH TWICE A DAY SOLD: 07/07/2019 [facility] 7.5-325 mg 07/07/2019 12:00:00 AM EST [...] MAXIMUM DAILY DOSE = 3 SOLD: 06/03/2019 [facility] 20 mg 05/30/2019 12:00:00 AM EST [...] type / Coverage type Policy ID Covered libertarian ID Covered libertarian's relationship to guerrero Policy Guerrero Plan Information JOSE A [id number] SP [id number] [facility] [id number] SP [id number] MEDICARE C [id number] S [id number] N66 [facility] C [id number] S [id number] [employer] JE PART B C [id number] S [id number] MEDICAID [id number] SP [id number] MEDICARE [id number] SP [id number] MEDICARE [id number] SP [id number] MEDICARE [id number] SP [id number] A BS [place] Medigap Part B [id number] Self [id number] [employer] Claims (WC) Workers Compensation [id number] Jackelin f [id number] [place] Claims (WC) Workers Compensation [id number] Self [id number] Medicare Natl Gov't Servi Medicare Primary [id number] Self [id number] MEDICARE PART A -O/P [id number] 18 [id number] MEDICARE [id number] SP [id number] A SELF PAY UNAVAILABLE SP UNAVAILA BLE MEDFOCUS P [id number] S [id number] A Problems, Conditions, and Diagnoses Code Display Name Description Problem Type Effective Dates Data Source(s) F41.9 Anxiety disorder, unspecified Unspecified Anxiety Diso rder Condition 04/11/2019 12:00:00 AM EST [facility] ([facility]) F29 Unspecified psychosis not du e to a substance or known physiological condition Unspecified Schizophrenia Spectrum and Other Psychotic Disorder Condition 04/11/2019 12:00:00 AM EST [facility] ([facility]) Surgeries/Procedures Procedure Description Date Indications Data Source(s) Extended Individual Psychotherapy - 45 min 04/11/2019 12:00:00 AM EST - 04/11/2019 12:00:00 AM EST [facility] ([facility]) Extended Individual Psychotherapy - 45 min 9 12:00:00 AM EST [facility] ([facility]) Social History Code Duration Value Status Description Data Source(s ) Smoking 04/11/2019 12:00:00 AM EST Unknown if ever smoked comp leted Unknown if ever smoked [facility] ([facility])
[2020-06-05] MEDS ORDERED: AZITHROMYCIN 250MG TABLET PO SCH (09:00)
[2020-06-05 11:56] VITALS: BP 150/85
[2020-06-05] MEDS: traZODone 50 MG TAB PO PRN (22:05)
[2020-06-05] MEDS: ACETAMINOPHEN TAB 650MG DOSE (2X325MG) PO PRN (22:06)
[2020-06-06] MEDS ORDERED: traZODone 50 MG TAB PO ONE (01:00)
[2020-06-06 06:45] VITALS: BP 151/95
--- NOTE | 2020-06-06 13:02 | HPEPDOC ---
General Date of Admission Jun 05, 2020 at 06:25 Date of Service: Jun 06, 2020 Chief Complaint The patient is a 44-year-old female admitted with a reason for visit of Unspecified Psychotic Disorder. Source: Patient History of Present Illness 44 year old female admitted for unspecified psychotic disorder to [facility]. She is being examined today for medical history and physical. She does complain of some chronic low back pain and rates it about 3/10, dull aching in nature. She does not remember clearly how she came to the hospital. On initial presentation she was agitated however now she is calm and cooperative. Home Medications Scheduled Azithromycin (Azithromycin) 250 Mg Tablet, 250 MG PO ASDIRECTED, (Reported) take 2 tabs by mouth first day then 1 tab daily x 4 days. started 06/03/20 Baclofen (Baclofen) 20 Mg Tablet, 20 MG PO TID, (Reported) Scheduled PRN Hydrocodone/Acetaminophen (Hydrocodone-Acetamin 7.5-325) 1 Each Tablet, 1 TAB PO BID PRN for PAIN, (Reported) Loperamide HCl (Anti-Diarrheal) 2 Mg Tablet, 2 MG PO ASDIRECTED PRN for DIARRHEA Trazodone HCl (Trazodone HCl) 50 Mg Tablet, 50 MG PO QHSP PRN for INSOMNIA Miscellaneous Medications [med rec comment] , (Reported) used [facility] for med list. unable to speak with patient Allergies Coded Allergies: Penicillins (Verified Allergy, Severe, "airway closes", 12/27/18) Past Medical History Medical History Psychotic disorder Anxiety PTSD Chronic back pain. Surgical History Back surgery times one. Left knee surgery times seven. Right knee surgery times five. Hysterectomy. Appendectomy. Family History Father hypertension, of sepsis in 2013. Mother Alive. Social History * Smoker: current smoker Alcohol: occationally Drugs: denies A-FIB/CHADSVASC A-FIB History Current/History of A-Fib/PAF?: No Vital Signs Vital Signs Date Time Temp Pulse Resp B/P (MAP) Pulse Ox O2 Delivery O2 Flow Rate FiO2 06/06/20 09:39 Room Air 06/06/20 06:45 99.5 93 18 151/95 (113) 97 Assessment/Plan 44 year old female admitted for unspecified psychotic disorder to [facility]. She is being examined today for medical history and physical. Chronic low back pain tylenol prn. Unspecified psychosis as per psychiatry. Plan / VTE VTE Prophylaxis Ordered?: No (freely ambulatory) ALVIN RYAN MD Jun 06, 2020 13:02
--- NOTE | 2020-06-06 16:20 | WAPSY-INT ---
[facility] PSYCH INITIAL ASSESSMENT DATE OF ASSESSMENT: 04/04/2021 DATE OF ADMISSION: 06/05/2020 VITAL SIGNS: Blood pressure 144/75, pulse 84, temperature 98.1. This is a video assessment. She is in the ER. She is waiting to go upstairs to the inpatient psychiatry unit. CHIEF COMPLAINT: Has been agitated. SUBJECTIVE: She is 44 years old. Has a history of at least one previous hospitalization. This was December 2018, had been admitted for about 6 days or so with unspecified psychosis. The essential diagnosis was major depressive disorder with psychosis, possibility of generalized anxiety disorder and posttraumatic stress disorder were considered. Had come in as she was thought to be psychotic for about two to three months at that time. When admitted at that time, was placed on Zoloft at 50 mg daily, Invega 3 mg b.i.d., Seroquel 50 mg at night for insomnia. Was discharged on those medicines, as well as for anxiety. Unclear if she followed up with any outpatient care. Was brought in today, apparently by police, who had been called by the patient's family, as they were concerned for her mental state. Apparently the patient had been expressing statements indicating some confusion, delusions. Was agitated. She is not able to provide a coherent history. She answers quite a few questions with "Seriously?" Apparently, has not been taking her medicines, and some question that she has a history of psychosis is, though, difficult to ascertain. When seen in the ER initially by staff, was intermittently cooperative, but quite anxious as well. Was felt to be responding to internal stimuli, whispering to herself. Would quite often state "wait." She is unable to indicate effectively as to how she was brought here or why. Is quite guarded as well, tends to have a somewhat nervous laugh. PAST PSYCHIATRIC HISTORY: As indicated above. MEDICAL HISTORY: Has history of chronic back pain. Has had surgery on the back. Left knee, right knee had been operated on several occasions. Has history of hysterectomy and appendectomy per previous chart. MEDICATIONS: - azithromycin, though the date she last took it is unclear. - hydrocodone 7.5/325, and toxicology was positive for opiates. - baclofen 20 mg t.i.d. SOCIAL HISTORY: Lives on her own, as far as I'm aware. MENTAL STATUS EXAMINATION: Neat, guarded. Unable to fully cooperate. Mild irritability. Difficulties organizing her thoughts. She is alert. No fluctuation of consciousness. Affect restricted, but reactive. At present does not appear to be internally preoccupied, though that is hard to ascertain and no overt delusions are elicited, though that remains a possibility. No fluctuation of consciousness. Oriented to place. She could not tell me if she was oriented to time. Judgment, insight are poor. Has been seen by the ER physician, has been deemed to be medically cleared. ASSESSMENT: 1. Unspecified psychotic disorder. 2. Differential diagnosis will include schizophrenia with schizoaffective disorder. 3. Possibility of psychotic disorder secondary to any medical ailments is also considered. PLAN: She is admitted to the inpatient psychiatry unit, placed on relevant precautions. We will look at obtaining collateral information. She will receive a medicine consultation, if indicated. We will place her on anti-agitation medications as well to help with her current state, and will look at starting a scheduled antipsychotic. Further recommendations will be made depending on the clinical picture. I anticipate a five to seven day stay. BLANE
[2020-06-06] MEDS: traZODone 50 MG TAB PO PRN (21:32)
[2020-06-06] MEDS: ACETAMINOPHEN TAB 650MG DOSE (2X325MG) PO PRN (21:32)
[2020-06-07 06:53] VITALS: BP 142/92
--- NOTE | 2020-06-07 08:46 | MHIPN ---
[facility] PROGRESS NOTE DATE: 06/05/2020 VITAL SIGNS: Blood pressure 150/85, pulse 108, temperature 98.6. CHIEF COMPLAINT: Says feels okay. SUBJECTIVE: Seen for followup, in the presence of staff, this is via video. I had seen her when she was in the emergency room last night, on video, when she was being admitted to the inpatient unit. That was done because of concerns with COVID. She says she is doing okay, and that she slept a bit. Does not remember much of what happened yesterday, or the circumstances of her coming to the hospital, does not know why the police were called. Says stays with her mother, does not remember much of the last couple of days, but that a few days ago had gone to see Dr. Keely Solo, her primary care, because of bronchitis, was given azithromycin. She has apparently not taken any of it. Says spends time at home, and that she has been doing well emotionally, denies any major difficulties with sleep, says on occasion has aches and pains, because of previous back pain. Appetite is okay. Denies any suicidal thoughts or intents. Denies any auditory or visual hallucinations. Says she and her mother get along well. Says the last time she was here, a year and a half ago, was put on medicine, was discharged, went to outpatient treatment at the community clinic, but stopped going after 4 or 5 months, says did well after that, took the medicine, she thinks it was Zoloft, for a relatively short while. Denies any use of drugs. Says takes her medicines regularly. MENTAL STATUS EXAMINATION: She is neat, cooperative though a bit guarded. No agitation, no psychomotor retardation. Affect is restricted but reactive. She answers questions logically, coherently. Denies any suicidal thoughts or intents, no homicidal ideas or intents, does not appear internally preoccupied at present, no overt delusions or ideations are elicited. Judgment is questionable, as is insight. It should be noted, after the patient was seen, staff obtained collateral information from patient's mother, who indicated that things had developed rather suddenly, and that the patient had about 3 days or so ago felt a tingling sensation in her left arm, and felt it was paralyzed, had seen Dr. Keely Solo, no acute interventions, but had a cough, and was put on azithromycin, which she has apparently not collected yet. Mother apparently did not think that patient takes any alcohol or drugs. She suggested that this was similar to what had been seen about a year and a half ago when she was admitted here. ASSESSMENT: Unspecified psychotic disorder. Consider drug induced psychotic disorder. Given the above, the possibility of a psychotic disorder secondary to a possibly unknown medical condition is to be considered. PLAN: Continue current observations, look into obtaining further collateral information, I would hold off on putting her on any scheduled psychotropic. We will get medicine involved, and may also require a neurological evaluation, possibly as an outpatient. Further recommendations will be made depending on the clinical picture.
[2020-06-07] MEDS ORDERED: LOPERAMIDE 2 MG CAPLET PO PRN (16:30)
[2020-06-07 17:16] VITALS: BP 111/77
--- NOTE | 2020-06-07 20:17 | MHIPNPDOC ---
[facility] Progress Note Progress Note DATE OF SERVICE: 06/07/20 HISTORY: 44 year old female who reports that she doesn't remember much of what happened and why was she brought to the Emergency Room where she was found out to be confused. VITAL SIGNS: See below. NEW TEST RESULTS: See below CURRENT MEDICATIONS: See below. MENTAL STATUS EXAMINATION: Patient is a 44-year old female, who is alert, cooperative, with good hygiene. Speech: Is normal in r/t/v, spontaneous and fluent Language skills: intact Thought processes including: linear, coherent. Thought content: negative for SI/HI, negative for thought delusions at this lisa e. Description of associations: intact. Description of abnormal or psychotic thoughts: denies tav hallucinations, she is not responding to internal stimuli. Judgment: fair. Insight: fair. Orientation: x 3. Recent and remote memory: she can't recall the events that lead to her admission. Attention span and concentration: fair Language: adequate. Fund of knowledge: average. Mood: euthymic. Affect: congruent with mood. DIAGNOSES: 1. Unspecified psychotic disorder 2. R/O substance induced psychotic disorder ASSESSMENT: The patient is not psychotic at this time but she can't recall why was she brought to the ED. I will contact Neurology tomorrow to place a consult since the patient could be affected by another medical condition, but with the way she was described during the time she spent at the [facility] in the ED, one could consider a neurological problem ( r/o a seizure d/o?) MANAGEMENT PLAN: As above. TIME SPENT: 20 minutes. Vital Signs Vital Signs Date Time Temp Pulse Resp B/P (MAP) Pulse Ox O2 Delivery O2 Flow Rate FiO2 06/07/20 09:00 Room Air 06/07/20 06:53 98.4 101 16 142/92 (109) 97 Current Medications Current Medications Medications (Trade) Dose Ordered Sig/Dory Route PRN Reason Start Time Stop Time Status Last Admin Dose Admin Acetaminophen (Tylenol Tab) 650 mg Q6HP PRN PO HEADACHE or DISCOMFORT 06/05/20 06:30 06/06/20 21:32 Al Hydrox/Mg Hydrox/Simethicone (Mylanta) 30 ml Q4HP PRN PO HEARTBURN/INDIGESTION 06/05/20 06:30 Azithromycin (Zithromax Tab) 250 mg DAILY PO 06/05/20 09:00 06/07/20 09:00 Cancel Home Med (Med Rec Complete!) ASDIRECTED XX 06/04/20 20:00 06/04/20 19:51 DC Lorazepam (Ativan) 2 mg STAT STAT IM 06/05/20 01:53 06/05/20 01:54 DC 06/05/20 02:10 Magnesium Hydroxide (Milk Of Magnesia) 30 ml DAILYPRN PRN PO CONSTIPATION 06/05/20 06:30 Olanzapine (ZyPREXA ZYDIS) 5 mg Q4HP PRN PO AGITATION 06/05/20 06:30 Trazodone HCl (Desyrel) 50 mg QHSP PRN PO INSOMNIA 06/05/20 06:30 06/06/20 21:32 Allergies Coded Allergies: Penicillins (Verified Allergy, Severe, "airway closes", 12/27/18) BRIAN MCALLISTER MD Jun 07, 2020 16:26
[2020-06-07] MEDS: traZODone 50 MG TAB PO PRN (21:25)
[2020-06-08 06:24] VITALS: BP 134/90
--- NOTE | 2020-06-08 12:51 | REP ---
INDICATION: R/O seizures other brain pathology. COMPARISON: Comparison CT study of the brain is from December 27, 2018.. TECHNIQUE: Helical scanning is acquired. 5 mm axial images were reformatted. Coronal MPR images were generated. FINDINGS: Bone window settings demonstrate an intact bony calvarium. There is no evidence of skull fracture or incidental bony calvarial lesion. The visualized paranasal sinuses appear clear. No intraorbital abnormality is seen. On soft tissue window setting images; the lateral, third, and fourth ventricles are normal in size and position. Noel-white differentiation pattern is normal above and below the tentorium. There are is no evidence of intracranial hemorrhage. No mass, edema, infarction, or midline shift is seen. No extra-axial fluid collection is appreciated. Digital lcac radar operator/navigator radiograph demonstrates that the patient is edentulous. No calvarial lesion is seen. IMPRESSION: Negative noncontrast head CT. <Electronically signed by Geovanny Clemente > 06/08/20 [id number]
--- NOTE | 2020-06-08 12:57 | REP ---
INDICATION: R/O mass/tumor. COMPARISON: Comparison MRI study March 19, 2013. Comparison is made with today's head CT.. TECHNIQUE: Axial and sagittal imaging planes are utilized for T1 and T2-weighted scans. Sequences include spin-echo, fast spin echo, FLAIR, and diffusion weighted sequences. FINDINGS: No bony calvarial lesion is seen. Craniocervical junction and upper cervical cord are normal in appearance. There is no MR evidence of significant paranasal sinus disease. No intraorbital abnormality is seen. The lateral, third, and fourth ventricles are normal in size and position. Noel-white differentiation pattern is intact above and below the tentorium. There is no evidence of intracranial hemorrhage. No mass, infarction, extra-axial fluid collection or midline shift is seen. No abnormal white matter lesion is seen. IMPRESSION: Negative noncontrast brain MRI study. <Electronically signed by Geovanny Clemente > 06/08/20 [id number]
[2020-06-08] MEDS ORDERED: ANTI2TAB16 PO (15:40)
[2020-06-08] MEDS ORDERED: TRAZ-252 PO (15:40)
[2020-06-08 16:30] VITALS: BP 123/86
--- NOTE | 2020-06-10 09:24 | MHIPN ---
[facility] PROGRESS NOTE DATE: 06/06/2020 VITAL SIGNS: Blood pressure 151/95, pulse 96, temperature 99.5. This is a video assessment, she is seen in the presence of staff. CHIEF COMPLAINT: Says feels okay. SUBJECTIVE: Seen for followup, indicates feels okay, and that her mood has been okay. Says had slept well, though required an extra dose of trazodone last night. Appetite is okay. Has been in touch with her mother. She feels that she is her usual self. Staff has obtained collateral information from her mother, apparently no history of drug use. Patient says that she had recently, a few days ago, been sleeping possibly in an awkward position, and later found that her left hand was somewhat numb, some diminishing of sensations in the left arm, says had informed her primary care about it when she had gone to see her for bronchitis, or a cough, and they felt that it may be because of her nerves in the neck, that are improved. She says that matters have improved, but not improved functioning. She says she feels this episode, which she cannot recall details of, as to how she was brought to hospital, was similar to the one a year and a half or so ago. She also suggests that her father had what sounds like complex seizures, not grand mal, generalized. She says his hands would tend to shake when he had the seizures, and would not pass out. MENTAL STATUS EXAMINATION: Neat, cooperative, no agitation, no psychomotor retardation. Affect broader than yesterday. She is coherent. Denies any thoughts of harming herself or anyone else, at present does not appear to be internally preoccupied, no delusional ideations are elicited. Cognition grossly intact, judgment somewhat improved, insight fair. ASSESSMENT: Unspecified psychotic disorder. The presentations of the psychosis are atypical, circumscribed. Primary psychosis not likely, the pattern does not much that. I would suggest considering the possibility of seizure disorder, and complex partial seizures, which may give psychotic symptoms temporarily. PLAN: Continue current care, observations, and would suggest considering discharge in the next 24-48 hours, should state remain the same. I do not think she requires a scheduled antipsychotic at this point. Would recommend neurological evaluation, could be done as an outpatient. Further recommendations to be made by the clinician tomorrow.
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
== END 2020-06-08 16:40 | disposition home or self-care (01) | DRG 885 ==
LOC: M ED 19:01 → M ED INP 06-05 06:25 → M PSY 06-05 11:10
PROVIDERS: ADMIT Psychiatry & Neurology Psychiatry; ATTEND Psychiatry & Neurology Psychiatry
DX: F29 Unspecified psychosis not due to a substance or known physiological condition (principal); F19.159 Other psychoactive substance abuse with psychoactive substance-induced psychotic disorder, unspecified; M54.9 Dorsalgia, unspecified; Z79.899 Other long term (current) drug therapy; Z79.891 Long term (current) use of opiate analgesic

== ENCOUNTER 2023-02-23 17:26 | Inpatient (IN) | payer MEDICAID, MEDICARE, SELFPAY ==
[~2023-02-23] VITALS: Ht 157.5 cm; Wt 54.5 kg
[~2023-02-23 17:26] MED LIST changes: +ANTI2TAB16 PO; +AZIT-12 PO; +BACL1TAB9 PO; +HYDR-4514 PO; -QUET50TA3 PO; +QUET50TA4 PO; +TRAZ-252 PO; +med rec comment
[2023-02-23 18:35] LABS: BASO % 0.5 % (0.0-1.0); EOS % 0.4 % (0.0-3.0); HEMATOCRIT 37.5 % (36.0-47.0); HEMOGLOBIN 12.7 g/dl (12.0-15.5); LYMPH # 2.6 10^3/uL (1.5-5.0); MEAN CORPUSCULAR HEMOGLOBIN 31.8 pg (27.0-33.0); MEAN CORPUSCULAR HGB CONC 33.9 g/dl (32.0-36.5); MEAN CORPUSCULAR VOLUME 93.8 fl (80.0-96.0); MONO # 0.7 10^3/uL (0.0-0.8); MONO % 8.1 % (2.0-8.0); NEUTROPHILS % 59.8 % (36.0-66.0); PLATELET COUNT, AUTOMATED 287 10^3/uL (150-450); WHITE BLOOD COUNT 8.3 10^3/uL (4.0-10.0)
[2023-02-23 18:57] LABS: AMPHETAMINES LEVEL URINE NEGATIVE (NEGATIVE); BARBITURATES URINE NEGATIVE (NEGATIVE); BENZODIAZEPINES URINE NEGATIVE (NEGATIVE); CANNABINOIDS URINE NEGATIVE (NEGATIVE); COCAINE METABOLITE URINE NEGATIVE (NEGATIVE); METHADONE URINE NEGATIVE (NEGATIVE); OPIATES URINE NEGATIVE (NEGATIVE); PHENCYCLIDINE URINE NEGATIVE (NEGATIVE)
[2023-02-23 18:59] LABS: ETHYL ALCOHOL (ETHANOL) < 0.003 % (0.000-0.010)
[2023-02-23 19:00] LABS: ACETAMINOPHEN LEVEL < 2.0 UG/ML (10.0-20.0); SALICYLATE LEVEL < 3.0 MG/DL (<30)
[2023-02-23 19:01] LABS: ALBUMIN 4.5 G/DL (3.2-5.2); ALKALINE PHOSPHATASE 58 U/L (46-116); ALT/SGPT 12 U/L (7.0-40); AST/SGOT 13 U/L (<34); BILIRUBIN,DIRECT 0.2 MG/DL (<0.4); BILIRUBIN,TOTAL 0.4 MG/DL (0.3-1.2); BLOOD UREA NITROGEN 13 MG/DL (9-23); CALCIUM LEVEL 9.6 MG/DL (8.5-10.1); CARBON DIOXIDE LEVEL 24 MMOL/L (20-31); CHLORIDE LEVEL 109 MMOL/L (98-107); CREATININE FOR GFR 0.65 MG/DL (0.55-1.30); GLOMERULAR FILTRATION RATE > 60.0 (>58); GLUCOSE, FASTING 93 MG/DL (60-100); POTASSIUM SERUM 3.3 MMOL/L (3.5-5.1); SODIUM LEVEL 142 MMOL/L (136-145); TOTAL PROTEIN 7.1 G/DL (5.7-8.2)
[2023-02-23 19:02] LABS: THYROID STIMULATING HORMONE 0.729 uIU/ML (0.55-4.78)
[2023-02-23] MEDS ORDERED: POTASSIUM CHLORIDE 10MEQ SR TABLET PO ONE (19:05)
[2023-02-23 19:18] LABS: LIPASE 38 U/L (12-53)
[2023-02-23 19:40] LABS: HCG, SERUM QUALITATIVE NEGATIVE (NEGATIVE)
[2023-02-23] MEDS ORDERED: HOME MED LIST COMPLETE! XX SCH (21:20)
[2023-02-24] MEDS ORDERED: MIDAZOLAM INJ 2MG/2ML VIAL IM ONE (05:10)
[2023-02-24] MEDS ORDERED: diphenhydrAMINE 50MG/ML VIAL IM ONE (05:10)
[2023-02-24] MEDS ORDERED: HALOPERIDOL 5MG/ML 1ML VIAL IM ONE (05:10)
[2023-02-25] MEDS ORDERED: MOM 30ML SUSPENSION UDC PO PRN (19:45)
[2023-02-25] MEDS ORDERED: ACETAMINOPHEN TAB 650MG DOSE (2X325MG) PO PRN (19:45)
[2023-02-25] MEDS ORDERED: NICOTINE 21MG/24HR 1 EA TRANSDERMAL TD PRN (19:45)
[2023-02-25] MEDS ORDERED: IBUPROFEN 400MG TAB PO PRN (19:45)
[2023-02-25] MEDS ORDERED: MAALOX 30 ML SUSP *UDC PO PRN (19:45)
[2023-02-25 21:21] VITALS: BP 141/85; TEMP 97.2; O2SAT 97
[2023-02-26] MEDS: diphenhydrAMINE 25MG CAP PO PRN ×2 (00:18→21:52)
[2023-02-26] MEDS: traZODone 50 MG TAB PO PRN ×2 (00:56→21:52)
[2023-02-26 06:32] VITALS: BP 109/78; TEMP 97.2; O2SAT 95
[2023-02-26 18:11] VITALS: BP 110/83; TEMP 98.2; O2SAT 97
[2023-02-27 07:02] VITALS: BP 134/65; TEMP 97; O2SAT 96
[2023-02-27] MEDS ORDERED: TRAZ-252 PO (10:06)
[2023-02-27] MEDS ORDERED: OLAN5ZYD PO (10:06)
[2023-02-27] MEDS ORDERED: NICO21PAT TD (10:06)
== END 2023-02-27 12:51 | disposition home or self-care (01) | DRG 882 ==
LOC: M ED 17:26 → M ED INP 02-25 19:44 → M PSY 02-25 20:59
PROVIDERS: ADMIT Psychiatry & Neurology Psychiatry; ATTEND Student in an Organized Health Care Education/Training Program
DX: F43.9 Reaction to severe stress, unspecified (principal); F17.210 Nicotine dependence, cigarettes, uncomplicated; Z88.0 Allergy status to penicillin; R00.0 Tachycardia, unspecified; F41.0 Panic disorder [episodic paroxysmal anxiety]

== ENCOUNTER → 2024-01-18 | Outpatient (CLI) | payer OTHER ==
[~2024-01-18] MED LIST changes: +ISOVUE-370 76% 100ML VIAL As Ordered ONE; +NICO21PAT TD; +OLAN5ZYD PO
== END ==
LOC: M RAD 16:46
PROVIDERS: ATTEND Family Medicine
DX: R51.9 Headache, unspecified (principal)
CPT/HCPCS: 70470; Q9967

== ENCOUNTER 2024-05-14 16:57 | Inpatient (IN) | payer MEDICAID, MEDICARE, OTHER ==
[~2024-05-14] VITALS: Ht 152.4 cm; Wt 52.1 kg
[~2024-05-14 16:57] MED LIST changes: -ISOVUE-370 76% 100ML VIAL As Ordered ONE
[2024-05-14] MEDS ORDERED: ACET300T47 PO (17:22)
[2024-05-14] MEDS ORDERED: ALPR0.25 PO (17:22)
[2024-05-14] MEDS ORDERED: PROP10TA56 PO (17:22)
[2024-05-14] MEDS ORDERED: HOME MED LIST COMPLETE! XX SCH (17:25)
[2024-05-14 17:46] LABS: HEMATOCRIT 41.4 % (36.0-47.0); HEMOGLOBIN 13.6 g/dl (12.0-15.5); MEAN CORPUSCULAR HEMOGLOBIN 32.5 pg (27.0-33.0); MEAN CORPUSCULAR HGB CONC 32.9 g/dl (32.0-36.5); MEAN CORPUSCULAR VOLUME 98.8 fl (80.0-96.0); PLATELET COUNT, AUTOMATED 365 10^3/uL (150-450); RED BLOOD COUNT 4.19 10^6/uL (4.00-5.40); WHITE BLOOD COUNT 18.3 10^3/uL (4.0-10.0)
[2024-05-14 18:15] LABS: ETHYL ALCOHOL (ETHANOL) 0.003 % (0.000-0.010)
[2024-05-14 18:17] LABS: ALBUMIN 4.4 G/DL (3.2-5.2); ALKALINE PHOSPHATASE 60 U/L (35-104); ALT/SGPT 17 U/L (7.0-40); AST/SGOT 13 U/L (<34); BILIRUBIN,DIRECT < 0.1 MG/DL (<0.4); BILIRUBIN,TOTAL 0.3 MG/DL (0.3-1.2); BLOOD UREA NITROGEN 20 MG/DL (9-23); CALCIUM LEVEL 9.9 MG/DL (8.5-10.1); CARBON DIOXIDE LEVEL 31 MMOL/L (20-31); CHLORIDE LEVEL 104 MMOL/L (98-107); CREATININE FOR GFR 0.65 MG/DL (0.55-1.30); GLOMERULAR FILTRATION RATE > 60.0 (>58); GLUCOSE, FASTING 92 MG/DL (60-100); POTASSIUM SERUM 3.6 MMOL/L (3.5-5.1); SALICYLATE LEVEL < 3.0 MG/DL (<30); SODIUM LEVEL 143 MMOL/L (136-145); TOTAL PROTEIN 7.7 G/DL (5.7-8.2)
[2024-05-14 18:19] LABS: HCG, SERUM QUALITATIVE NEGATIVE (NEGATIVE); THYROID STIMULATING HORMONE 0.358 uIU/ML (0.55-4.78)
[2024-05-14] MEDS: OLANZapine ORAL DISINTEGRATING TAB 5MG PO ONE (18:50)
[2024-05-14 18:57] LABS: KETONE, URINE AUTO RFX NEGATIVE (NEGATIVE); LEUKOCYTE ESTERASE UR AUTO RFX NEGATIVE (NEGATIVE); NITRITE, URINE AUTO RFX NEGATIVE (NEGATIVE); RBC, URINE AUTO RFX 0 /HPF (0-3); SQUAM EPITHELIAL CELL UR AURFX 0 /HPF (0-6); WBC, URINE AUTO RFX 0 /HPF (0-3)
[2024-05-14 19:20] LABS: AMPHETAMINES LEVEL URINE NEGATIVE (NEGATIVE); BARBITURATES URINE NEGATIVE (NEGATIVE); BENZODIAZEPINES URINE NEGATIVE (NEGATIVE); CANNABINOIDS URINE NEGATIVE (NEGATIVE); COCAINE METABOLITE URINE NEGATIVE (NEGATIVE); METHADONE URINE NEGATIVE (NEGATIVE); OPIATES URINE NEGATIVE (NEGATIVE); PHENCYCLIDINE URINE NEGATIVE (NEGATIVE)
[2024-05-14] MEDS ORDERED: MOM 30ML SUSPENSION UDC PO PRN (21:55)
[2024-05-14] MEDS ORDERED: MAALOX 30 ML SUSP *UDC PO PRN (21:55)
[2024-05-15] MEDS: diphenhydrAMINE 25MG CAP PO PRN (00:22)
[2024-05-15] MEDS: LORazepam 1 MG TAB PO PRN (00:22)
[2024-05-15] MEDS: NICOTINE 14 MG/24 HR TRANSDERMAL TD SCH (08:53)
[2024-05-15] MEDS ORDERED: OLANZapine ORAL DISINTEGRATING TAB 5MG PO PRN (09:40)
[2024-05-15 09:44] LABS: HEMATOCRIT 38.9 % (36.0-47.0); HEMOGLOBIN 12.6 g/dl (12.0-15.5); MEAN CORPUSCULAR HEMOGLOBIN 31.7 pg (27.0-33.0); MEAN CORPUSCULAR HGB CONC 32.4 g/dl (32.0-36.5); PLATELET COUNT, AUTOMATED 306 10^3/uL (150-450); RED BLOOD COUNT 3.97 10^6/uL (4.00-5.40); WHITE BLOOD COUNT 9.3 10^3/uL (4.0-10.0)
[2024-05-15 10:09] LABS: FREE T3 3.3 PG/ML (2.3-4.2)
[2024-05-15 10:10] LABS: FREE T4 1.31 NG/DL (0.89-1.76); THYROID STIMULATING HORMONE 0.979 uIU/ML (0.55-4.78)
[2024-05-15] MEDS: OLANZapine 5 MG TAB PO SCH (10:12)
[2024-05-15] MEDS: PROPRANOLOL 10 MG TAB PO SCH (10:12)
[2024-05-15] MEDS: BACLOFEN 10 MG TAB PO SCH (11:02)
[2024-05-16] MEDS: ACETAMINOPHEN 325 MG TAB PO PRN (03:59)
[2024-05-16 06:40] VITALS: BP 114/79; TEMP 98.4; O2SAT 98
[2024-05-16 15:01] VITALS: BP 132/64; TEMP 97.3; O2SAT 100
[2024-05-16] MEDS: IBUPROFEN 400MG TAB PO PRN (15:17)
[2024-05-16] MEDS: traZODone 50 MG TAB PO PRN (20:45)
[2024-05-17 15:38] VITALS: BP 115/85; TEMP 97.8; O2SAT 100
[2024-05-18 16:25] VITALS: BP 100/74; TEMP 98.3; O2SAT 93
[2024-05-19 06:22] VITALS: BP 116/73; TEMP 97.4; O2SAT 100
[2024-05-19 08:23] VITALS: BP 110/81
[2024-05-20 06:30] VITALS: BP 98/65; TEMP 97.7; O2SAT 97
[2024-05-20 14:35] VITALS: BP 119/80; TEMP 101; O2SAT 99
[2024-05-20 17:46] VITALS: TEMP 98; O2SAT 100
[2024-05-20] MEDS: OLANZapine 10 MG TAB PO SCH (20:34)
[2024-05-21 06:07] VITALS: BP 96/51; TEMP 98.6; O2SAT 96
[2024-05-21 16:25] VITALS: BP 111/61; TEMP 98.5; O2SAT 97
[2024-05-22 06:37] VITALS: BP 110/65; TEMP 97.7; O2SAT 97
[2024-05-22 08:33] VITALS: BP 121/78
[2024-05-22 15:20] VITALS: BP 101/76; TEMP 97.2; O2SAT 98
[2024-05-22] MEDS: PROPRANOLOL 10 MG TAB PO SCH (20:50)
[2024-05-23 06:40] VITALS: BP 102/63; TEMP 97.6; O2SAT 100
[2024-05-23 11:21] LABS: BLOOD UREA NITROGEN 22 MG/DL (9-23); CARBON DIOXIDE LEVEL 31 MMOL/L (20-31); CHLORIDE LEVEL 107 MMOL/L (98-107); GLOMERULAR FILTRATION RATE > 60.0 (>58); GLUCOSE, FASTING 83 MG/DL (60-100); SODIUM LEVEL 144 MMOL/L (136-145)
[2024-05-23 16:42] LABS: APPEARANCE, URINE HAZY (CLEAR); BACTERIA, URINE AUTO NEGATIVE (NEGATIVE); BILIRUBIN, URINE AUTO NEGATIVE (NEGATIVE); BLOOD, URINE BLOOD NEGATIVE (NEGATIVE); COLOR, URINE YELLOW (YELLOW); GLUCOSE, URINE (UA) AUTO NEGATIVE (NEGATIVE); KETONE, URINE AUTO NEGATIVE (NEGATIVE); LEUKOCYTE ESTERASE, URINE AUTO NEGATIVE (NEGATIVE); MUCUS, URINE SMALL (NEGATIVE); NITRITE, URINE AUTO NEGATIVE (NEGATIVE); PROTEIN, URINE AUTO NEGATIVE (NEGATIVE); RBC, URINE AUTO 1 /HPF (0-3); SPECIFIC GRAVITY URINE AUTO 1.024 (1.002-1.035); SQUAMOUS EPITHELIAL CELL UR AU 3 /HPF (0-6); UROBILINOGEN, URINE AUTO 0.2 mg/dL (0.0-2.0); WBC, URINE AUTO 3 /HPF (0-3)
[2024-05-24 06:17] VITALS: BP 100/60; TEMP 98.5; O2SAT 97
[2024-05-24 16:37] VITALS: BP 102/72; TEMP 97.8; O2SAT 99
[2024-05-25] MEDS: MYCOLOG CREAM 15GM (NYSTATIN/TRIAMCINOLONE) TOP SCH (00:55)
[2024-05-25 06:14] VITALS: BP 101/58; TEMP 98.6; O2SAT 98
[2024-05-25] MEDS: risperiDONE 2 MG TAB PO SCH ×2 (09:00→20:30)
[2024-05-25 15:23] VITALS: BP 93/53; TEMP 99.3
[2024-05-26 06:22] VITALS: BP 119/76; TEMP 97.8; O2SAT 99
[2024-05-26 08:07] VITALS: BP 109/72
[2024-05-26 15:45] VITALS: BP 119/75; TEMP 97.4; O2SAT 100
[2024-05-26] MEDS ORDERED: NICOTINE 14 MG/24 HR TRANSDERMAL TD PRN (15:55)
[2024-05-26] MEDS: risperiDONE 3 MG TAB PO SCH (20:12)
[2024-05-27 06:19] VITALS: BP 99/58; TEMP 97.3; O2SAT 97
[2024-05-27 08:53] VITALS: BP 114/73
[2024-05-27 16:50] VITALS: BP 115/73; TEMP 97.8; O2SAT 98
[2024-05-28 06:27] VITALS: BP 111/64; TEMP 97.5; O2SAT 96
[2024-05-28 08:18] VITALS: BP 130/76
[2024-05-28 08:56] VITALS: BP 130/76
[2024-05-28] MEDS ORDERED: RISP3TAB20 PO (09:42)
== END 2024-05-28 13:09 | disposition home or self-care (01) | DRG 885 ==
LOC: M ED 16:57 → M ED INP 21:53 → M PSY 23:47
PROVIDERS: ADMIT Psychiatry & Neurology Neurology; ATTEND Psychiatry & Neurology Psychiatry
DX: F31.2 Bipolar disorder, current episode manic severe with psychotic features (principal); R21 Rash and other nonspecific skin eruption; Z79.891 Long term (current) use of opiate analgesic; Z79.899 Other long term (current) drug therapy; Z88.0 Allergy status to penicillin

== ENCOUNTER → 2024-11-30 | Outpatient (CLI) | payer MEDICARE, MEDICAID ==
[~2024-11-30] MED LIST changes: +ACET300T47 PO; +ALPR0.25 PO; +PROP10TA56 PO; +RISP3TAB20 PO
== END ==
LOC: M RAD 10:29
PROVIDERS: ATTEND Student in an Organized Health Care Education/Training Program
DX: M54.12 Radiculopathy, cervical region (principal); M48.062 Spinal stenosis, lumbar region with neurogenic claudication

== ENCOUNTER → 2024-12-22 | Outpatient (REF) | payer MEDICARE, MEDICAID ==
[2024-12-24 13:27] LABS: HPV APTIMA Not Detected (Not Detected)
== END ==
LOC: M SFHCPLAZ 10:08
PROVIDERS: ATTEND Student in an Organized Health Care Education/Training Program
DX: N93.9 Abnormal uterine and vaginal bleeding, unspecified (principal); R87.610 Atypical squamous cells of undetermined significance on cytologic smear of cervix (ASC-US); Z12.4 Encounter for screening for malignant neoplasm of cervix
CPT/HCPCS: 87624; G0123

== ENCOUNTER → 2025-01-07 | Day surgery (SDC) | payer MEDICARE, MEDICAID ==
[~2025-01-07] VITALS: Ht 152.4 cm; Wt 57.6 kg
[~2025-01-07] MED LIST changes: +BACL5TAB2 PO; +BUPR1SUB33 PO; +DULO1CAP5 PO; +ERGO500029 PO; +FURO20TA2 PO; +GABA-1172 PO; +MAGN400T35 PO; +NICO21DI37 SC
== END | disposition home or self-care (01) ==
LOC: M OPP 10:09
PROVIDERS: ATTEND Internal Medicine Gastroenterology
DX: Z53.09 Procedure and treatment not carried out because of other contraindication (principal)

== ENCOUNTER → 2025-02-02 | Outpatient (CLI) | payer MEDICARE, MEDICAID | LOC: M CARPUL 14:45 | PROVIDERS: ATTEND Student in an Organized Health Care Education/Training Program | DX: R06.02 Shortness of breath (principal) ==